=== PATIENT | male | born 1950 | race African-American/Black ===

== ENCOUNTER 2017-12-20 09:56 | Outpatient (CLI) | payer MEDICARE, OTHER ==
[2017-12-21 08:12] LABS: COLLAGEN EPINEPHRINE 135 SECONDS (74-162)
== END 2017-12-21 ==
LOC: M LAB 09:56
DX: H02.032 Senile entropion of right lower eyelid (principal)
CPT/HCPCS: 36415

== ENCOUNTER 2018-01-04 12:06 | Observation (INO) | payer MEDICARE, BC, OTHER ==
[2018-01-04] MEDS: BACITRACIN OINT 30GM TOP ×2 (09:00)
[2018-01-04 13:03] LABS: BASO % 0.3 % (0.0-1.0); EOS # 0.1 10^3/uL (0.0-0.50); EOS % 1.1 % (0.0-3.0); HEMOGLOBIN 12.6 g/dl (13.5-17.5); IMMATURE GRANULOCYTE % 0.7 % (0-3.0); LYMPH # 1.3 10^3/uL (1.5-4.5); LYMPH % 11.6 % (24.0-44.0); MEAN CORPUSCULAR VOLUME 94.2 fl (80.0-96.0); MONO # 0.9 10^3/uL (0.0-0.8); MONO % 8.4 % (0.0-5.0); NEUTROPHILS # 8.6 10^3/uL (1.8-7.7); NEUTROPHILS % 77.9 % (36.0-66.0); PLATELET COUNT, AUTOMATED 279 10^3/uL (150-450); RED BLOOD COUNT 3.82 10^6/uL (4.30-6.10); RED CELL DISTRIBUTION WIDTH 12.2 % (11.5-14.5)
[2018-01-04 13:20] LABS: BEDSIDE GLUCOSE 123 MG/DL (80-115)
[2018-01-04 13:20] LABS: INR 0.95; PROTHROMBIN TIME 12.8 SECONDS (12.1-14.4)
[2018-01-04 13:21] LABS: PARTIAL THROMBOPLASTIN TIME 26.6 SECONDS (25.4-37.6)
[2018-01-04 13:32] LABS: ANION GAP 5 MEQ/L (8-16); BLOOD UREA NITROGEN 12 MG/DL (7-18); CARBON DIOXIDE LEVEL 26 MEQ/L (21-32); CHLORIDE LEVEL 101 MEQ/L (98-107); CPK CREATINE PHOSPHOKINASE 61 U/L (39-308); CREATININE FOR GFR 0.91 MG/DL (0.70-1.30); ETHYL ALCOHOL (ETHANOL) 0.007 % (0.000-0.010); GLOMERULAR FILTRATION RATE > 60.0 (>49); GLUCOSE, FASTING 125 MG/DL (70-100); MAGNESIUM LEVEL 2.3 MG/DL (1.8-2.4); MB/CK RELATIVE INDEX 1.64 (< OR =4); SODIUM LEVEL 132 MEQ/L (136-145); THYROID STIMULATING HORMONE 0.962 uIU/ML (0.358-3.740); TROPONIN I < 0.02 NG/ML (< 0.10)
[2018-01-04] MEDS: NS 1,000 ML IV ×2 (13:55)
[2018-01-04 15:04] LABS: KETONE, URINE AUTO RFX TRACE mg/dL (NEGATIVE); LEUKOCYTE ESTERASE UR AUTO RFX NEGATIVE (NEGATIVE); MUCUS, URINE RFX SMALL (NEGATIVE); NITRITE, URINE AUTO RFX NEGATIVE (NEGATIVE); RBC, URINE AUTO RFX 0 /HPF (0-3); SPECIFIC GRAVITY UR AUTO RFX 1.008 (1.002-1.035); SQUAM EPITHELIAL CELL UR AURFX 0 /HPF (0-6); WBC, URINE AUTO RFX 0 /HPF (0-3)
[2018-01-04 15:22] LABS: AMPHETAMINES LEVEL URINE NEGATIVE (NEGATIVE); BARBITURATES URINE NEGATIVE (NEGATIVE); BENZODIAZEPINES URINE NEGATIVE (NEGATIVE); CANNABINOIDS URINE NEGATIVE (NEGATIVE); COCAINE METABOLITE URINE NEGATIVE (NEGATIVE); METHADONE URINE NEGATIVE (NEGATIVE); OPIATES URINE NEGATIVE (NEGATIVE); PHENCYCLIDINE URINE NEGATIVE (NEGATIVE)
[2018-01-04] MEDS ORDERED: ACETAMINOPHEN TAB 650MG DOSE (2X325MG) PO ×2 (16:00)
[2018-01-04] MEDS ORDERED: ONDANSETRON 4MG/2ML VIAL (J2405) IV ×2 (16:00)
[2018-01-04] MEDS ORDERED: BISACODYL 5 MG TAB PO ×2 (16:00)
[2018-01-04] MEDS: MULTIVITAMINS/MINERALS THERAP 1 TAB PO ×2 (18:18)
[2018-01-04] MEDS: FOLIC ACID 1 MG TAB PO ×2 (18:18)
[2018-01-04 19:39] LABS: CPK CREATINE PHOSPHOKINASE 55 U/L (39-308); MB/CK RELATIVE INDEX 1.82 (< OR =4); TROPONIN I < 0.02 NG/ML (< 0.10)
[2018-01-04] MEDS: ATORVASTATIN 20 MG TAB PO ×2 (20:22)
[2018-01-04] MEDS: HEPARIN SOD (PORCINE) 5000 UNITS/ML VIAL SC ×2 (22:45)
[2018-01-05 00:55] LABS: CK-MB VALUE MASS < 1.0 NG/ML (<3.6); CPK CREATINE PHOSPHOKINASE 54 U/L (39-308); MB/CK RELATIVE INDEX 1.85 (< OR =4); TROPONIN I < 0.02 NG/ML (< 0.10)
[2018-01-05] MEDS: HEPARIN SOD (PORCINE) 5000 UNITS/ML VIAL SC ×6 (06:44→21:05)
[2018-01-05 07:50] LABS: HEMATOCRIT 34.2 % (42.0-52.0); HEMOGLOBIN 11.9 g/dl (13.5-17.5); MEAN CORPUSCULAR HEMOGLOBIN 32.8 pg (27.0-33.0); MEAN CORPUSCULAR HGB CONC 34.8 g/dl (32.0-36.5); MEAN CORPUSCULAR VOLUME 94.2 fl (80.0-96.0); PLATELET COUNT, AUTOMATED 270 10^3/uL (150-450); RED BLOOD COUNT 3.63 10^6/uL (4.30-6.10); RED CELL DISTRIBUTION WIDTH 12.2 % (11.5-14.5); WHITE BLOOD COUNT 9.6 10^3/uL (4.0-10.0)
[2018-01-05 08:24] LABS: ANION GAP 7 MEQ/L (8-16); BLOOD UREA NITROGEN 9 MG/DL (7-18); CALCIUM LEVEL 8.3 MG/DL (8.8-10.2); CARBON DIOXIDE LEVEL 25 MEQ/L (21-32); CHLORIDE LEVEL 106 MEQ/L (98-107); CK-MB VALUE MASS < 1.0 NG/ML (<3.6); CPK CREATINE PHOSPHOKINASE 50 U/L (39-308); CREATININE FOR GFR 0.77 MG/DL (0.70-1.30); GLOMERULAR FILTRATION RATE > 60.0 (>49); GLUCOSE, FASTING 100 MG/DL (70-100); POTASSIUM SERUM 4.4 MEQ/L (3.5-5.1); SODIUM LEVEL 138 MEQ/L (136-145); TROPONIN I < 0.02 NG/ML (< 0.10)
[2018-01-05] MEDS: NS 1,000 ML IV ×4 (11:06→21:04)
[2018-01-05] MEDS: FOLIC ACID 1 MG TAB PO ×2 (11:07)
[2018-01-05] MEDS: MULTIVITAMINS/MINERALS THERAP 1 TAB PO ×2 (11:07)
[2018-01-05] MEDS: ASPIRIN 325 MG TAB PO ×2 (11:07)
[2018-01-05] MEDS: BACITRACIN OINT 30GM TOP ×2 (11:07)
[2018-01-05] MEDS: THIAMINE 100 MG TAB PO ×4 (11:08→21:05)
[2018-01-05] MEDS: ATORVASTATIN 20 MG TAB PO ×2 (21:05)
[2018-01-06] MEDS: HEPARIN SOD (PORCINE) 5000 UNITS/ML VIAL SC ×6 (06:06→21:06)
[2018-01-06] MEDS: FOLIC ACID 1 MG TAB PO ×2 (09:11)
[2018-01-06] MEDS: THIAMINE 100 MG TAB PO ×4 (09:11→20:25)
[2018-01-06] MEDS: MULTIVITAMINS/MINERALS THERAP 1 TAB PO ×2 (09:11)
[2018-01-06] MEDS: ASPIRIN 325 MG TAB PO ×2 (09:11)
[2018-01-06] MEDS: BACITRACIN OINT 30GM TOP ×2 (09:13)
[2018-01-06] MEDS ORDERED: SLF 3 ML SYR IV ×2 (10:15)
[2018-01-06] MEDS: SLF 3 ML SYR IV ×4 (13:13→21:06)
[2018-01-06] MEDS: ATORVASTATIN 20 MG TAB PO ×2 (20:25)
[2018-01-07] MEDS: HEPARIN SOD (PORCINE) 5000 UNITS/ML VIAL SC ×2 (05:07)
[2018-01-07] MEDS: SLF 3 ML SYR IV ×2 (05:08)
[2018-01-07] MEDS: MULTIVITAMINS/MINERALS THERAP 1 TAB PO ×2 (08:53)
[2018-01-07] MEDS: FOLIC ACID 1 MG TAB PO ×2 (08:53)
[2018-01-07] MEDS: ASPIRIN 325 MG TAB PO ×2 (08:53)
[2018-01-07] MEDS: THIAMINE 100 MG TAB PO ×2 (08:53)
[2018-01-07] MEDS: BACITRACIN OINT 30GM TOP ×2 (08:54)
== END 2018-01-07 13:07 | disposition home or self-care (01) ==
LOC: M ED 12:06 → M ED INP 15:56 → M PCU 18:10
DX: I10 Essential (primary) hypertension (principal); I73.9 Peripheral vascular disease, unspecified; I95.1 Orthostatic hypotension; E78.5 Hyperlipidemia, unspecified; R55 Syncope and collapse; Z79.82 Long term (current) use of aspirin; Z79.899 Other long term (current) drug therapy; F10.10 Alcohol abuse, uncomplicated
CPT/HCPCS: 71045

== ENCOUNTER → 2019-10-22 | Outpatient (CLI) | payer MEDICARE, BC, OTHER ==
[~2019-10-22] MED LIST: ADVI200T PO; AMLO1TAB24 PO; AMLO1TAB25 PO; APAP325T4 PO; ASPI325T57 PO; ATOR40TA75 PO; CARV12.5 PO; D31000TA2 PO; FOLI1TAB11 PO; IBUP200C28 PO; LISI-538 PO; LISI30TA4 PO; OXYC1TAB23 PO; THIA100TA PO; VITMTA PO; XARE2.5T PO
[2019-11-18 18:11] LABS: INR 0.91; PROTHROMBIN TIME 12.5 SECONDS (11.8-14.0)
[2019-11-18 20:28] LABS: HEMATOCRIT 42.9 % (42.0-52.0); HEMOGLOBIN 14.7 g/dl (13.5-17.5); MEAN CORPUSCULAR HEMOGLOBIN 32.8 pg (27.0-33.0); MEAN CORPUSCULAR HGB CONC 34.3 g/dl (32.0-36.5); MEAN CORPUSCULAR VOLUME 95.8 fl (80.0-96.0); PLATELET COUNT, AUTOMATED 340 10^3/uL (150-450); RED BLOOD COUNT 4.48 10^6/uL (4.30-6.10); WHITE BLOOD COUNT 9.2 10^3/uL (4.0-10.0)
--- NOTE | 2019-12-11 13:33 | ECGEPIP ---
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
[2019-12-21 11:23] LABS: ALBUMIN 4.5 GM/DL (3.2-5.2); ALT/SGPT 35 U/L (12-78); BILIRUBIN,TOTAL 0.6 MG/DL (0.2-1.0); BLOOD UREA NITROGEN 9 MG/DL (7-18); CALCIUM LEVEL 9.3 MG/DL (8.8-10.2); CARBON DIOXIDE LEVEL 25 MEQ/L (21-32); CHLORIDE LEVEL 100 MEQ/L (98-107); CREATININE FOR GFR 0.92 MG/DL (0.70-1.30); GLOMERULAR FILTRATION RATE > 60.0 (>49); GLUCOSE, FASTING 104 MG/DL (70-100); POTASSIUM SERUM 4.5 MEQ/L (3.5-5.1); SODIUM LEVEL 132 MEQ/L (136-145); TOTAL PROTEIN 7.7 GM/DL (6.4-8.2)
== END ==
LOC: M LAB 09:28
PROVIDERS: ATTEND Orthopaedic Surgery
DX: Z01.818 Encounter for other preprocedural examination (principal); M16.11 Unilateral primary osteoarthritis, right hip

== ENCOUNTER → 2019-10-31 | Outpatient (REF) | payer MEDICARE, BC, OTHER | LOC: M PLALAB 09:37 | PROVIDERS: ATTEND Physician Assistant Medical | DX: M16.11 Unilateral primary osteoarthritis, right hip (principal) ==

== ENCOUNTER 2019-11-04 07:10 | Inpatient (IN) | payer MEDICARE, BC, OTHER ==
[~2019-11-04 07:10] MED LIST changes: -AMLO1TAB24 PO; -D31000TA2 PO; -IBUP200C28 PO; -LISI30TA4 PO; -OXYC1TAB23 PO; -XARE2.5T PO; +ceFAZolin 2 GM/D5W 50 ML IV BAG (J0690 PER 500MG) As Ordered ONE
[2019-11-04] MEDS ORDERED: TRANEXAMIC ACID 100 MG/ML 10ML VIAL As Ordered ONE (07:17)
[2019-11-04] MEDS ORDERED: BUPIVACAINE LIPOSOME/PF 1.3% 20ML VIAL (13.3MG/ML)(EXPAREL)(C9290 PER1MG) As Ordered ONE (07:17)
[2019-11-04] MEDS ORDERED: EPINEPHrine INJ 1 MG/ML 1ML AMP As Ordered ONE (07:19)
[2019-11-04] MEDS ORDERED: ceFAZolin 1GM VIAL (J0690 PER 500MG) As Ordered ONE (07:19)
[2019-11-04] MEDS ORDERED: MIDAZOLAM INJ 2MG/2ML VIAL (J2250 PER 1MG) As Ordered ONE (08:02)
[2019-11-04] MEDS ORDERED: fentaNYL 100 MCG/2 ML INJECTION (J3010) As Ordered ONE (08:02)
[2019-11-04] MEDS ORDERED: propofoL 200 MG/20 ML VIAL As Ordered ONE ×2 (08:02→08:27)
[2019-11-04] MEDS ORDERED: LIDOCAINE 2% 100MG/5ML SDV (FOR ANES.) As Ordered ONE (08:02)
[2019-11-04] MEDS ORDERED: ONDANSETRON 4MG/2ML VIAL As Ordered ONE (08:02)
[2019-11-04] MEDS ORDERED: PHENYLephrine HCL 500 MCG/5 ML (100MCG/ML) SYRINGE (J2370) As Ordered ONE ×2 (08:08→08:50)
[2019-11-04] MEDS ORDERED: ePHEDrine SULFATE 25 MG/5 ML(5MG/ML) SYRINGE As Ordered ONE (08:33)
[2019-11-04] MEDS ORDERED: PERCOCET 5MG/325MG TAB As Ordered ONE ×2 (13:46→19:52)
[2019-11-04] MEDS ORDERED: ceFAZolin 2 GM/D5W 50 ML IV BAG (J0690 PER 500MG) As Ordered ONE (16:49)
[2019-11-05] MEDS ORDERED: ceFAZolin 2 GM/D5W 50 ML IV BAG (J0690 PER 500MG) As Ordered ONE (00:05)
[2019-11-05] MEDS ORDERED: PERCOCET 5MG/325MG TAB As Ordered ONE ×4 (00:13→15:41)
[2019-11-05] MEDS ORDERED: ATORVASTATIN 20 MG TAB As Ordered ONE (08:30)
[2019-11-05] MEDS ORDERED: amLODIPine 5 MG TAB As Ordered ONE (08:30)
[2019-11-05] MEDS ORDERED: MORPHINE 4 MG/ML 1ML VIAL/SYRINGE (J2270) IV PRN (16:30)
[2019-11-05] MEDS ORDERED: LR 1,000 ML IV SCH (16:30)
[2019-11-05] MEDS ORDERED: MORPHINE 2 MG/ML 1ML VIAL (J2270) IV PRN (16:30)
[2019-11-05] MEDS ORDERED: ACETAMINOPHEN TAB 650MG DOSE (2X325MG) PO PRN (16:30)
[2019-11-05] MEDS ORDERED: ONDANSETRON 4MG/2ML VIAL IV PRN (16:30)
[2019-11-05] MEDS ORDERED: LISI30TA4 PO (18:44)
[2019-11-05] MEDS ORDERED: AMLO1TAB24 PO (18:44)
[2019-11-05] MEDS ORDERED: VITMTA PO (18:44)
[2019-11-05] MEDS ORDERED: D31000TA2 PO (18:44)
[2019-11-05] MEDS ORDERED: IBUP200C28 PO (18:44)
[2019-11-05 21:25] LABS: HEMATOCRIT 34.4 % (42.0-52.0); HEMOGLOBIN 11.9 g/dl (13.5-17.5); MEAN CORPUSCULAR HEMOGLOBIN 32.9 pg (27.0-33.0); MEAN CORPUSCULAR HGB CONC 34.6 g/dl (32.0-36.5); PLATELET COUNT, AUTOMATED 295 10^3/uL (150-450); RED BLOOD COUNT 3.62 10^6/uL (4.30-6.10); WHITE BLOOD COUNT 9.1 10^3/uL (4.0-10.0)
[2019-11-06] MEDS ORDERED: MIRALAX *UNIT DOSE* 17GM PACKET PO SCH (09:00)
[2019-11-06] MEDS ORDERED: ATORVASTATIN 20 MG TAB PO SCH (09:00)
[2019-11-06] MEDS ORDERED: MOM 30ML SUSPENSION UDC PO SCH (09:00)
[2019-11-06] MEDS ORDERED: amLODIPine 5 MG TAB PO SCH (09:00)
[2019-11-06] MEDS ORDERED: RIVAROXABAN 10 MG TAB (XARELTO) PO SCH (18:00)
--- NOTE | 2019-12-11 09:46 | RO ---
DATE OF OPERATION: 11/04/2019 PREOPERATIVE DIAGNOSIS: Right hip osteoarthritis. POSTOPERATIVE DIAGNOSIS: Right hip osteoarthritis. PROCEDURE: Right total hip arthroplasty using a [place] size 8 high offset, plus 8.5 40 head, 58 acetabular component. SURGEON: Newton Tamayo MD SOLDER MAKING SUPERVISOR: JOSE EDUARDO Lucas ANESTHESIA: Spinal. ESTIMATED BLOOD LOSS: 200 ml COMPLICATIONS: None. INDICATIONS: Gentleman in his late 60s who has had persistent right hip pain. He wishes to undergo hip replacement. Understood the nature and risks. PROCEDURE: The patient was taken to the operating room and placed in the supine position after spinal anesthesia was induced. The patient was then turned to the left lateral decubitus position on the [place] positioner. The right hip was prepped and draped in the usual sterile fashion. Time-out was performed and a longitudinal incision was over the lateral aspect of the hip. Sharp dissection was carried down through subcutaneous tissue. I incised the fascia and then divided the anterior 40% of the abductor off anteriorly exposing the femoral neck and labrum. We dislocated the hip without difficulty. The reamers were then used to start the canal finding reamer, lateralizing reamer and sequentially reamed up to a size 8, which had good purchase and good bleeding bone. The neck cut was made at about of a fingerbreadth up in the lesser trochanter. We directed our attention to the acetabulum. Anterior/posterior retractors were placed and soft tissue was removed from around the acetabulum, including some calcified labrum. The reaming was then begun. I started with a 48 reamed up to 57, which had good concentric reaming. I was able to medialize it some and then impacted in a 58 cup and the appropriate amount of anteversion and horitzontal tilt. Excellent position was noted. I did place a trial cup in for a liner. I had irrigated multiple times. I then sequentially broached the canal up to a size 8, which had a good fit and fill. I trial off the trial broach and chose the 8.5 high offset, which seemed to have the best stability and best soft tissue tension, minimal shock and full extension and excellent stability and external rotation and extension, flexion, internal rotation. I removed the trial, acetabular component, put the apex hole eliminator and I then I packed it in the actual polyethylene. The poly seems well seated. I then impacted in the actual size 8 high offset stem, made sure this was well seated. I irrigated it. I then place the 8.5, 40 head, impacted this in place, made sure it was well seated. We reduced the hip. After hip range of motion, was very pleased with the stability and range of motion. The TXA and Exparel were placed in the deep tissues. Irrigation was performed and the deep layer was closed with interrupted #1 Vicryl suture. Several stitches being placed through the bone for the abductor and then the fascia annika was then closed with #1 Vicryl suture, running Stratafix and 2-0 Vicryl and skin garcía. Sterile dressing was applied. He was taken to the recovery in stable condition. There were no known complications. The plan will be routine postop. The exceptional children teacher assistant was instrumental in holding retractors and assisting in mixing the bone cement and assisting in wound closure. CAROL
--- NOTE | 2019-12-28 07:23 | IPN ---
DATE: 11/04/2019 Patient was seen and examined in the preop area. He wished to go ahead with a right total hip arthroplasty. He understands the nature of this, the risks of bleeding, infection, damage to nerves and/or vessels, persistent pain, wear, loosening, dislocation, blood clots, medical problems and , among others. CAROL
--- NOTE | 2020-01-28 07:15 | DS ---
DATE OF ADMISSION: 11/04/2019 DATE OF DISCHARGE: 11/05/2019 ATTENDING PHYSICIAN: Newton Tamayo MD. ADMITTING DIAGNOSIS: Right hip osteoarthritis. OTHER DIAGNOSES: * Hypertension. * Hyperlipidemia. * Peripheral vascular disease. DISCHARGE DIAGNOSIS: Right hip osteoarthritis status post right total hip arthroplasty. HISTORY: Patient is a 69-year-old male that had progressively worsening right hip pain and stiffness. He failed to improve with conservative measures. He continued to have symptoms with weightbearing activities and activities of daily living. He consented for an elective right total hip arthroplasty with Dr. Tamayo for his continued symptoms. OPERATION PERFORMED: Right total hip arthroplasty. HOSPITAL COURSE: The patient underwent a right total hip arthroplasty under spinal anesthesia which was uneventful. His hospital course was without complication and he was up with physical therapy per their protocol weightbearing as tolerated on the right lower extremity. Patient was discharged on oral pain medications and will resume his pre-operative medications and diet. Patient will use his thromboembolic deterrent stockings and take his anticoagulant post-operatively to prevent deep venous thrombosis. Patient will follow up in our office in 12-14 days for a wound check and staple removal. He is encouraged to contact our office sooner if there is any increase in pain, redness, drainage, numbness or tingling in the extremity, fever greater than 101 degrees or any other concerns. Please see medical records for additional details. CAROL
== END 2019-11-05 16:00 | disposition home or self-care (01) | DRG 470 ==
LOC: M MS5PR 07:10
PROVIDERS: ADMIT Orthopaedic Surgery; ATTEND Orthopaedic Surgery
PROC: 0SR90JZ Replacement of Right Hip Joint with Synthetic Substitute, Open Approach (ICD-10-PCS; principal; 2019-11-04)
DX: M16.11 Unilateral primary osteoarthritis, right hip (principal); I10 Essential (primary) hypertension; E78.5 Hyperlipidemia, unspecified; I73.9 Peripheral vascular disease, unspecified

== ENCOUNTER → 2019-12-19 | Outpatient (CLI) | payer MEDICARE, BC, OTHER ==
[~2019-12-19] MED LIST changes: +AMLO1TAB24 PO; +D31000TA2 PO; +IBUP200C28 PO; +LISI30TA4 PO; +OXYC1TAB23 PO; +XARE2.5T PO; -ceFAZolin 2 GM/D5W 50 ML IV BAG (J0690 PER 500MG) As Ordered ONE
--- NOTE | 2019-12-26 09:04 | REP ---
CHEST X-RAY: 2-VIEWS HISTORY: Abnormal weight loss. COMPARISON: Chest x-ray 12/22/2019. FINDINGS: There is a stable linear band of fibrosis in the right apex overlying the right first rib and medial clavicle unchanged from 10/22/2019 and 01/04/2018. Lung barrett are otherwise well-inflated and clear. Pleural angles are sharp. The heart is not enlarged. The aorta is calcific. Mild degenerative changes are seen in the thoracic spine. Pulmonary vasculature is not increased. IMPRESSION: No acute disease. MTDD
== END ==
LOC: M ADAMS 14:03
PROVIDERS: ATTEND Internal Medicine
DX: R63.4 Abnormal weight loss (principal); Z87.891 Personal history of nicotine dependence

== ENCOUNTER → 2019-12-27 | Outpatient (CLI) | payer MEDICARE, BC, OTHER ==
[2019-12-27 10:49] LABS: BASO % 0.3 % (0.0-1.0); EOS # 0.1 10^3/uL (0.0-0.5); EOS % 0.5 % (0.0-3.0); HEMATOCRIT 40.4 % (42.0-52.0); HEMOGLOBIN 13.6 g/dl (13.5-17.5); LYMPH # 1.2 10^3/uL (1.5-5.0); MEAN CORPUSCULAR HEMOGLOBIN 31.8 pg (27.0-33.0); MEAN CORPUSCULAR HGB CONC 33.7 g/dl (32.0-36.5); MEAN CORPUSCULAR VOLUME 94.4 fl (80.0-96.0); MONO % 10.1 % (0.0-5.0); NEUTROPHILS # 7.4 10^3/uL (1.5-8.5); NEUTROPHILS % 76.6 % (36.0-66.0); PLATELET COUNT, AUTOMATED 450 10^3/uL (150-450); RED BLOOD COUNT 4.28 10^6/uL (4.30-6.10); WHITE BLOOD COUNT 9.7 10^3/uL (4.0-10.0)
[2019-12-27 11:04] LABS: INR 0.96; PROTHROMBIN TIME 12.9 SECONDS (12.5-14.3)
[2019-12-27 11:05] LABS: PARTIAL THROMBOPLASTIN TIME 29.4 SECONDS (24.2-38.5)
[2019-12-27 11:14] LABS: BLOOD UREA NITROGEN 6 MG/DL (7-18); CALCIUM LEVEL 9.6 MG/DL (8.8-10.2); CARBON DIOXIDE LEVEL 27 MEQ/L (21-32); CHLORIDE LEVEL 94 MEQ/L (98-107); CREATININE FOR GFR 0.75 MG/DL (0.70-1.30); GLOMERULAR FILTRATION RATE > 60.0 (>49); GLUCOSE, FASTING 104 MG/DL (70-100); POTASSIUM SERUM 4.4 MEQ/L (3.5-5.1); SODIUM LEVEL 127 MEQ/L (136-145)
== END ==
LOC: M LAB 09:53
PROVIDERS: ATTEND Surgery Vascular Surgery
DX: I70.211 Atherosclerosis of native arteries of extremities with intermittent claudication, right leg (principal)

== ENCOUNTER 2020-01-04 14:45 | Emergency (ER) | payer MEDICARE, BC, OTHER ==
[~2020-01-04] VITALS: Ht 182.9 cm; Wt 75.7 kg
[~2020-01-04 14:45] MED LIST changes: -OXYC1TAB23 PO; -XARE2.5T PO
[2020-01-04] MEDS ORDERED: NS 1,000 ML IV ONE (15:45)
--- NOTE | 2020-01-04 16:02 | REPVR ---
PROCEDURE INFORMATION: Exam: XR Chest, 2 Views Exam date and time: 01/04/2020 3:37 PM Age: 69 years old Clinical indication: Other: Syncope TECHNIQUE: Imaging protocol: XR of the chest Views: 2 views. COMPARISON: DX CHEST 2 VIEW 12/19/2019 1:47 PM FINDINGS: Lungs: Chronic linear scarring in the right lung apex. No acute focal areas of consolidation within the lungs. Pleural space: No pleural effusion or pneumothorax. Heart/Mediastinum: Cardiac and mediastinal silhouettes are unremarkable. Bones/joints: No acute osseus lesion or fracture. IMPRESSION: No acute cardiopulmonary findings. Electronically signed by: Sang Young On 01/04/2020 16:02:20 PM
[2020-01-04] MEDS ORDERED: OXYC1TAB23 PO (16:55)
[2020-01-04] MEDS ORDERED: XARE2.5T PO (16:55)
[2020-01-04 16:59] LABS: BASO % 0.2 % (0.0-1.0); EOS # 0.1 10^3/uL (0.0-0.5); EOS % 1.1 % (0.0-3.0); HEMATOCRIT 32.4 % (42.0-52.0); HEMOGLOBIN 10.6 g/dl (13.5-17.5); LYMPH # 0.8 10^3/uL (1.5-5.0); LYMPH % 6.3 % (24.0-44.0); MEAN CORPUSCULAR HEMOGLOBIN 31.8 pg (27.0-33.0); MEAN CORPUSCULAR HGB CONC 32.7 g/dl (32.0-36.5); MEAN CORPUSCULAR VOLUME 97.3 fl (80.0-96.0); MONO # 1.4 10^3/uL (0.0-0.8); MONO % 11.2 % (0.0-5.0); NEUTROPHILS # 9.9 10^3/uL (1.5-8.5); NEUTROPHILS % 80.6 % (36.0-66.0); PLATELET COUNT, AUTOMATED 258 10^3/uL (150-450); RED BLOOD COUNT 3.33 10^6/uL (4.30-6.10); WHITE BLOOD COUNT 12.3 10^3/uL (4.0-10.0)
[2020-01-04 17:34] LABS: ALBUMIN 3.2 GM/DL (3.2-5.2); ALT/SGPT 17 U/L (12-78); BILIRUBIN,DIRECT 0.1 MG/DL (0.0-0.2); BILIRUBIN,TOTAL 0.4 MG/DL (0.2-1.0); BLOOD UREA NITROGEN 19 MG/DL (7-18); CALCIUM LEVEL 8.5 MG/DL (8.8-10.2); CARBON DIOXIDE LEVEL 27 MEQ/L (21-32); CHLORIDE LEVEL 101 MEQ/L (98-107); CK-MB VALUE MASS 1.4 NG/ML (<3.6); CPK CREATINE PHOSPHOKINASE 287 U/L (39-308); CREATININE FOR GFR 0.96 MG/DL (0.70-1.30); FREE T4 1.32 NG/DL (0.76-1.46); GLOMERULAR FILTRATION RATE > 60.0 (>49); GLUCOSE, FASTING 96 MG/DL (70-100); MB/CK RELATIVE INDEX 0.49 (< OR =4); POTASSIUM SERUM 4.1 MEQ/L (3.5-5.1); SODIUM LEVEL 134 MEQ/L (136-145); TOTAL PROTEIN 5.9 GM/DL (6.4-8.2); TROPONIN I 0.06 NG/ML (< 0.10)
--- NOTE | 2020-01-04 18:25 | REPVR ---
PROCEDURE INFORMATION: Exam: CT Head Without Contrast Exam date and time: 01/04/2020 6:05 PM Age: 69 years old Clinical indication: Syncope and collapse TECHNIQUE: Imaging protocol: Computed tomography of the head without contrast. Radiation optimization: All CT scans at this facility use at least one of these dose optimization techniques: automated exposure control; mA and/or kV adjustment per patient size (includes targeted exams where dose is matched to clinical indication); or iterative reconstruction. COMPARISON: CT Head without contrast 01/04/2018 12:21 PM FINDINGS: Brain: Minimal nonspecific hypodensities of the periventricular and deep subcortical white matter, most likely secondary to chronic small vessel ischemic change. No intracranial hemorrhage or extra-axial fluid collection. No evidence of mass effect or midline shift. Madsen-white matter differentiation is normal. Cerebral ventricles: No ventriculomegaly. Bones/joints: No acute osseus lesion or fracture. Paranasal sinuses: Visualized sinuses are unremarkable. No fluid levels. Mastoid air cells: Unremarkable. Soft tissues: Unremarkable. IMPRESSION: No acute intracranial pathology. Electronically signed by: Sang Young On 01/04/2020 18:24:59 PM
[2020-01-04] MEDS ORDERED: PERCOCET 5MG/325MG TAB PO ONE (18:30)
[2020-01-04 21:47] VITALS: BP 126/73
--- NOTE | 2020-01-05 20:43 | ECGEPIP ---
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
== END 2020-01-04 21:57 | disposition short-term general hospital (02) ==
LOC: M ED 14:45 → EDBD 14:45 → M ED 21:57
DX: G45.9 Transient cerebral ischemic attack, unspecified (principal); R55 Syncope and collapse; R94.31 Abnormal electrocardiogram [ECG] [EKG]; I10 Essential (primary) hypertension; E78.5 Hyperlipidemia, unspecified; Z87.891 Personal history of nicotine dependence; Z79.899 Other long term (current) drug therapy

== ENCOUNTER → 2020-01-16 | Outpatient (REF) | payer MEDICARE, BC, OTHER ==
[~2020-01-16] MED LIST changes: +OXYC1TAB23 PO; +XARE2.5T PO
== END ==
LOC: M LAB REF 16:15
PROVIDERS: ATTEND Internal Medicine
DX: E87.1 Hypo-osmolality and hyponatremia (principal)

== ENCOUNTER → 2020-01-28 | Outpatient (CLI) | payer MEDICARE, BC, OTHER ==
--- NOTE | 2020-01-29 10:55 | REP ---
INDICATION: STAGING LUNG R91.8. COMPARISON: Comparison chest CT study [facility] dated January 01, 2020.. TECHNIQUE: Fifty-four minutes following the intravenous injection of a 8.04 mCi dose of F-18 FDG, three-dimensional PET scintigraphy is acquired from the skull base to the proximal thighs. Triplanar noncontrast CT scanning is acquired through the same anatomic range for attenuation correction, and image registration with scan parameters optimized to minimize radiation exposure to the patient. PET scintigraphy and CT datasets were fused and displayed on a workstation with multiplanar and projection display capability. FINDINGS: Head and neck soft tissues are unremarkable. There is a bandlike pleuroparenchymal fibrotic density in the right lung apex which is not hypermetabolic. Maximum standard uptake value 1.06. Medial and inferior to this there is another bandlike density with maximum standard uptake value also below hypermetabolic, 1.22. In the posterior aspect of the left lower lobe, there is a hypermetabolic pulmonary nodule. Maximum standard uptake value is 9.94. this pulmonary nodule has a suspicious spiculated morphology and measures 1.9 cm in greatest diameter. There is no other abnormal hypermetabolic uptake in the chest. In the abdomen and pelvis, there is normal distribution of FDG. No abnormal hypermetabolic uptake is seen in the adrenals or liver. Extensive vascular calcification in the is seen and there is a right-sided axillofemoral shunt graft a right hip arthroplasty is noted. No other abnormal hypermetabolic uptake is seen. There is mildly increased uptake at a healing rib fracture along the left lower anterior costal margin. This is the anterior edge of the left 6th rib. IMPRESSION: The left lower lobe spiculated 2 cm nodule is hypermetabolic suspicious for primary lung malignancy. No other abnormal hypermetabolic uptake is seen the in the chest. 2 somewhat nodular opacities are noted in the right lung apex and upper lobe but these are not hypermetabolic. <Electronically signed by Joey Hatch > 01/29/20 [id number]
== END ==
LOC: M PLARAD 11:19
PROVIDERS: ATTEND Internal Medicine
DX: R91.8 Other nonspecific abnormal finding of lung field (principal)
CPT/HCPCS: 78815; A9552

== ENCOUNTER → 2020-02-20 | Outpatient (REF) | payer MEDICARE, OTHER ==
[~2020-02-20] MED LIST changes: +ASPI-255 PO
[2020-02-20 11:41] LABS: PLATELET COUNT, AUTOMATED 407 10^3/uL (150-450)
[2020-02-20 15:51] LABS: INR 0.92; PROTHROMBIN TIME 12.5 SECONDS (12.5-14.3)
[2020-02-20 15:52] LABS: PARTIAL THROMBOPLASTIN TIME 30.5 SECONDS (24.2-38.5)
== END ==
LOC: M LABDRWAD 10:23
PROVIDERS: ATTEND Internal Medicine Pulmonary Disease
DX: R91.1 Solitary pulmonary nodule (principal); Z79.01 Long term (current) use of anticoagulants

== ENCOUNTER → 2020-02-21 | Outpatient (CLI) | payer MEDICARE, BC, OTHER ==
[~2020-02-21] MED LIST changes: +LIDOCAINE 1% MDV 20ML VIAL As Ordered ONE; +SODIUM BICARBONATE 8.4% INJ 50MEQ 50 ML VIAL As Ordered ONE
--- NOTE | 2020-02-21 10:32 | REP ---
INDICATION: POST LEFT LUNG BIOPSY, 1 VIEW, PA INSPIRATION. Patient is status post CT guided needle biopsy left lung. COMPARISON: Comparison chest x-ray January 04, 2020 and October 22, 2019.. TECHNIQUE: Upright inspire a pedro PA radiograph. FINDINGS: There is a very small crescent of apical pleural air on the left indicating a small postprocedural pneumothorax. A nodular opacity is seen projecting in the inferior perihilar region on the left. There is no evidence of parenchymal hemorrhage. Oxygen delivery tubing is noted. There are surgical clips in the right axillary soft tissues. There is an area of linear fibrosis in the right apex. Lung barrett are otherwise clear. IMPRESSION: Tiny left apical pneumothorax. 2 hour follow-up chest x-ray recommended. <Electronically signed by Joey Hatch > 02/21/20 1020
[2020-02-21 12:32] VITALS: BP 120/63
--- NOTE | 2020-02-21 12:42 | REP ---
INDICATION: POST LEFT LUNG BIOPSY, 1 VIEW. COMPARISON: Comparison study is from 10:17 a.m. on this same date, 02/21/2020.. TECHNIQUE: Inspiration PA chest radiograph. FINDINGS: The 2 hour follow-up chest radiograph demonstrates a tiny amount of left apical pleural air essentially unchanged from the earlier film. Patient remains asymptomatic and will be released. Perihilar nodular opacity seen in the left inferior perihilar region. Pleuroparenchymal changes on the right. IMPRESSION: Stable, tiny left apical pneumothorax. Unchanged from the earlier radiograph. <Electronically signed by Joey Hatch > 02/21/20 1639
--- NOTE | 2020-02-21 13:38 | REP ---
INDICATION: SOLITARY PULMONARY NODULE. COMPARISON: None. TECHNIQUE: The procedure is performed by Alyson Morocho [facility], under the direct supervision of Dr. Hatch. The risks and benefits of the procedure were explained to the patient and informed consent was obtained both orally and written. Directly prior to the start of the procedure, a formal timeout was done in the exam room. The left upper lobe lung nodule was localized using CT guidance. Skin was prepped and draped in the usual sterile fashion. Three ml of buffered lidocaine was used as a local anesthetic. FINDINGS: Using CT guidance a 19/20 gauge coaxial needle biopsy system was inserted and advanced into the nodule. Six core biopsy samples were obtained and sent to the lab. CT images obtained directly after the biopsy showed a small pneumothorax. The patient was placed on 2 L of oxygen and followed with serial chest x-rays. After the appropriate amount of monitored convalescence there is still evidence of a small pneumothorax. Considering the patient was in no distress he was discharged from the department, with the instructions that if anything changes to go directly to the ER. IMPRESSION: CT-guided left upper lobe lung nodule biopsy. <Electronically signed by Alyson Morocho > 02/21/20 1252 <Electronically signed by Joey Hatch > 02/21/20 [id number]
== END ==
LOC: M IRPRO 08:08
PROVIDERS: ATTEND Internal Medicine Pulmonary Disease
DX: C34.32 Malignant neoplasm of lower lobe, left bronchus or lung (principal)

== ENCOUNTER → 2020-03-24 | Outpatient (CLI) | payer MEDICARE, BC, OTHER ==
[~2020-03-24] MED LIST changes: -LIDOCAINE 1% MDV 20ML VIAL As Ordered ONE; -SODIUM BICARBONATE 8.4% INJ 50MEQ 50 ML VIAL As Ordered ONE
--- NOTE | 2020-03-24 08:11 | REP ---
INDICATION: OCCLUSION STENOSIS OF MOY CAROTID COMPARISON: None. TECHNIQUE: Madsen scale and color Doppler evaluation using linear high frequency transducer Findings: FINDINGS: Two-dimensional madsen scale and color images intimal thickening to the common carotid arteries extending to the carotid bulbs where a moderate amount of mixed partially calcified atheromatous plaquing is identified (right greater than left). Color Doppler interrogation demonstrates arterial wave patterns with moderate significant spectral broadening. Normal flow direction is appreciated in the bilateral vertebral arteries. ICA peak systolic velocity: Right 84.2 cm/s; Left 70.3 cm/s ICA diastolic velocity: Right 28.2 cm/s; Left 26.8 cm/s ECA peak systolic velocity: Right 196.6 cm/s; Left 91.7 cm/s CCA peak systolic velocity: Right 93.3 cm/s; Left 101.9 cm/s ICA/CCA ratio: Right 0.9 cm/s; Left 0.7 cm/s IMPRESSION: Moderately calcified atheromatous plaquing at the bilateral carotid bulbs with narrowing by set standards and visual evaluation in the less than 50% range bilaterally. <Electronically signed by Oziel Williamson > 03/24/20 0848
== END ==
LOC: M RAD 06:48
PROVIDERS: ATTEND Thoracic Surgery (Cardiothoracic Vascular Surgery)
DX: I65.23 Occlusion and stenosis of bilateral carotid arteries (principal)

== ENCOUNTER → 2020-04-06 | Outpatient (CLI) | payer MEDICARE, BC, OTHER ==
[~2020-04-06] MED LIST changes: -LISI-538 PO; +LISI20TA33 PO; +PERCOCET PO
[2020-04-06 10:23] LABS: HEMATOCRIT 42.7 % (42.0-52.0); HEMOGLOBIN 14.1 g/dl (13.5-17.5); MEAN CORPUSCULAR HEMOGLOBIN 31.5 pg (27.0-33.0); MEAN CORPUSCULAR VOLUME 95.3 fl (80.0-96.0); PLATELET COUNT, AUTOMATED 329 10^3/uL (150-450); RED BLOOD COUNT 4.48 10^6/uL (4.30-6.10); WHITE BLOOD COUNT 9.1 10^3/uL (4.0-10.0)
[2020-04-06 10:24] LABS: APPEARANCE, URINE CLEAR (CLEAR); BACTERIA, URINE AUTO NEGATIVE (NEGATIVE); BILIRUBIN, URINE AUTO NEGATIVE (NEGATIVE); BLOOD, URINE BLOOD NEGATIVE (NEGATIVE); COLOR, URINE YELLOW (YELLOW); GLUCOSE, URINE (UA) AUTO NEGATIVE (NEGATIVE); KETONE, URINE AUTO TRACE mg/dL (NEGATIVE); LEUKOCYTE ESTERASE, URINE AUTO NEGATIVE (NEGATIVE); MUCUS, URINE SMALL (NEGATIVE); NITRITE, URINE AUTO NEGATIVE (NEGATIVE); PROTEIN, URINE AUTO NEGATIVE (NEGATIVE); RBC, URINE AUTO 1 /HPF (0-3); SPECIFIC GRAVITY URINE AUTO 1.015 (1.002-1.035); SQUAMOUS EPITHELIAL CELL UR AU 0 /HPF (0-6); WBC, URINE AUTO 1 /HPF (0-3)
[2020-04-06 10:25] LABS: ABG BASE EXCESS -2.5 (-2.0-2.0); ABG HCO3 20.3 MEQ/L (22.0-26.0); ABG O2 SATURATION 97.9 % (95.0-99.0); ABG PARTIAL PRESSURE CO2 29.9 mmHg (35.0-45.0); ABG PARTIAL PRESSURE O2 92.4 mmHg (75.0-100.0); ABG STANDARD HCO3 22.4 MEQ/L (22.0-26.0); ABG TOTAL CO2 21.2 MEQ/L (23.0-31.0); ABG pH (ARTERIAL) 7.449 UNITS (7.350-7.450)
[2020-04-06 10:37] LABS: INR 1.15; PROTHROMBIN TIME 14.9 SECONDS (12.5-14.3)
[2020-04-06 10:47] LABS: BLOOD UREA NITROGEN 12 MG/DL (7-18); CARBON DIOXIDE LEVEL 25 MEQ/L (21-32); CHLORIDE LEVEL 100 MEQ/L (98-107); CREATININE FOR GFR 0.94 MG/DL (0.70-1.30); GLOMERULAR FILTRATION RATE > 60.0 (>49); GLUCOSE, FASTING 106 MG/DL (70-100); POTASSIUM SERUM 4.1 MEQ/L (3.5-5.1); SODIUM LEVEL 132 MEQ/L (136-145)
--- NOTE | 2020-04-06 11:25 | REP ---
INDICATION: LUNG CA PREOP ROOM 23. COMPARISON: Comparison chest x-ray February 21, 2020. TECHNIQUE: Two views.. FINDINGS: The lungs are well inflated and free of infiltrate. Pleural angles are sharp. Heart size is normal. Pulmonary vasculature is not increased. There is some left coronary artery vascular calcification or stent material visible. Wedging is noted in 1 of the midthoracic vertebrae on the lateral radiograph. This appears to be a new finding when compared with the CT0 images from January 01, 2020. IMPRESSION: No acute cardiopulmonary disease seen. Interval mild wedge compression deformity in the thoracic spine as a new finding.. <Electronically signed by Joey Hatch > 04/06/20 1125
--- NOTE | 2020-04-06 11:48 | ECGEPIP ---
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
== END ==
LOC: M ADMPAT 09:36
PROVIDERS: ATTEND Thoracic Surgery (Cardiothoracic Vascular Surgery)
DX: Z01.812 Encounter for preprocedural laboratory examination (principal); Z20.828 Contact with and (suspected) exposure to other viral communicable diseases; C34.90 Malignant neoplasm of unspecified part of unspecified bronchus or lung; Z79.01 Long term (current) use of anticoagulants

== ENCOUNTER → 2020-04-08 | Outpatient (CLI) | payer MEDICARE, BC, OTHER | LOC: M LABSMTC 12:35 | PROVIDERS: ATTEND Anesthesiology | DX: Z20.822 Contact with and (suspected) exposure to COVID-19 (principal) ==

== ENCOUNTER 2020-04-13 08:06 | Inpatient (IN) | payer MEDICARE, BC, OTHER ==
[2020-04-06 10:30] VITALS: BP 139/81
[~2020-04-13] VITALS: Ht 182.9 cm; Wt 69.4 kg
[2020-04-13] VITALS (13 sets, daily range): BP systolic 103–123; BP diastolic 52–67
[~2020-04-13 08:06] MED LIST changes: +LIDOCAINE 1% MDV 20ML VIAL SQ PRN; +LISI-538 PO; -LISI20TA33 PO; +MUPIROCIN 2% OINT 22 GM TUBE TOP ONE; -PERCOCET PO; +ceFAZolin SOD 2 GM in IV 1 EA IV ONE
[2020-04-13] MEDS ORDERED: fentaNYL 100 MCG/2 ML INJECTION (J3010) IV PRN ×2 (09:00→15:15)
[2020-04-13] MEDS ORDERED: MIDAZOLAM INJ 2MG/2ML VIAL (J2250 PER 1MG) IV PRN (09:00)
[2020-04-13] MEDS ORDERED: LR 1,000 ML IV ONE (09:00)
[2020-04-13] MEDS ORDERED: ceFAZolin 1GM VIAL (J0690 PER 500MG) As Ordered ONE (09:32)
[2020-04-13] MEDS ORDERED: BUPIVACAINE LIPOSOME/PF 1.3% 20ML VIAL (13.3MG/ML)(EXPAREL)(C9290 PER1MG) As Ordered ONE (09:32)
[2020-04-13] MEDS ORDERED: CETACAINE SPRAY 5GM As Ordered ONE (09:32)
[2020-04-13] MEDS ORDERED: BUPIVACAINE HCL 0.5% 10ML VIAL As Ordered ONE ×2 (09:32→10:28)
[2020-04-13] MEDS ORDERED: BUPIVACAINE HCL 0.25% 10ML VIAL As Ordered ONE (10:16)
[2020-04-13] MEDS ORDERED: EPIDURAL/PCA KEYS XX PRN (10:30)
[2020-04-13] MEDS ORDERED: ONDANSETRON 4MG/2ML VIAL IV PRN ×3 (10:30→15:15)
[2020-04-13] MEDS ORDERED: diphenhydrAMINE 50MG/ML VIAL (J1200) IV PRN (10:30)
[2020-04-13] MEDS ORDERED: METOCLOPRAMIDE INJ 10MG/2ML VIAL (J2765 PER 1) IV PRN (10:30)
[2020-04-13] MEDS ORDERED: WALLBOXKEY XX PRN (10:30)
[2020-04-13] MEDS ORDERED: NALOXONE INJ 0.4MG/1ML VIAL (J2310 PER 1MG) IV PRN (10:30)
[2020-04-13] MEDS ORDERED: ROCURONIUM BROMIDE 50 MG/5 ML VIAL As Ordered ONE ×3 (10:31→12:11)
[2020-04-13] MEDS ORDERED: fentaNYL 250 MCG/5 ML INJECTION (J3010) As Ordered ONE (10:31)
[2020-04-13] MEDS ORDERED: MIDAZOLAM INJ 2MG/2ML VIAL (J2250 PER 1MG) As Ordered ONE (10:31)
[2020-04-13] MEDS ORDERED: GLYCOPYRROLATE INJ 0.2 MG/ML 2 ML VIAL As Ordered ONE (10:31)
[2020-04-13] MEDS ORDERED: propofoL 200 MG/20 ML VIAL As Ordered ONE (10:31)
[2020-04-13] MEDS ORDERED: dexameTHASONE 4 MG/ML 1ML VIAL (J1100 PER 1MG) As Ordered ONE (10:31)
[2020-04-13] MEDS ORDERED: LIDOCAINE 2% 100MG/5ML SDV (FOR ANES.) As Ordered ONE (10:31)
[2020-04-13] MEDS ORDERED: SUGAMMADEX SODIUM 500 MG/5 ML VIAL (BRIDION) As Ordered ONE (10:31)
[2020-04-13] MEDS ORDERED: PHENYLephrine 500MCG 5ML (100MCG/ML) SYRINGE As Ordered ONE (11:20)
[2020-04-13] MEDS ORDERED: PHENYLEPHRINE 10MG/ML 1ML VIAL (J2370 PER 1) As Ordered ONE (11:37)
[2020-04-13] MEDS ORDERED: BUPIVACAINE HCL 0.25% 30ML VIAL As Ordered ONE (11:43)
[2020-04-13] MEDS ORDERED: ONDANSETRON 4MG/2ML VIAL As Ordered ONE (13:40)
[2020-04-13] MEDS ORDERED: ACETAMINOPHEN TAB 650MG DOSE (2X325MG) PO PRN (14:30)
[2020-04-13] MEDS ORDERED: LEVALBUTEROL 1.25 MG/0.5 ML CONCENTRATE NEB NEB PRN (14:30)
[2020-04-13] MEDS ORDERED: BISACODYL 10 MG SUPP PR PRN (14:30)
[2020-04-13] MEDS ORDERED: NORCO, ANEXSIA 5/325MG TABLET (HYDROcodone/ACETAMINOPHEN) PO PRN (14:30)
[2020-04-13] MEDS ORDERED: PERCOCET 5MG/325MG TAB PO PRN (14:30)
[2020-04-13] MEDS ORDERED: KETOROLAC 60MG 2ML VIAL As Ordered ONE (14:32)
[2020-04-13] MEDS: FENTANYL/BUPIVACAINE/NACL BAG 250 ML EPIDURAL SCH (15:00)
[2020-04-13 15:09] LABS: ABG BASE EXCESS -6.4 (-2.0-2.0); ABG HCO3 18.7 MEQ/L (22.0-26.0); ABG O2 SATURATION 99.3 % (95.0-99.0); ABG PARTIAL PRESSURE CO2 36.1 mmHg (35.0-45.0); ABG PARTIAL PRESSURE O2 163.8 mmHg (75.0-100.0); ABG STANDARD HCO3 19.3 MEQ/L (22.0-26.0); ABG TOTAL CO2 19.8 MEQ/L (23.0-31.0); ABG pH (ARTERIAL) 7.332 UNITS (7.350-7.450)
[2020-04-13 15:12] LABS: BASO % 0.2 % (0.0-1.0); EOS % 0.1 % (0.0-3.0); HEMATOCRIT 41.1 % (42.0-52.0); HEMOGLOBIN 13.7 g/dl (13.5-17.5); LYMPH # 0.7 10^3/uL (1.5-5.0); LYMPH % 4.2 % (24.0-44.0); MEAN CORPUSCULAR HEMOGLOBIN 31.3 pg (27.0-33.0); MEAN CORPUSCULAR HGB CONC 33.3 g/dl (32.0-36.5); MEAN CORPUSCULAR VOLUME 93.8 fl (80.0-96.0); MONO # 0.6 10^3/uL (0.0-0.8); MONO % 3.4 % (0.0-5.0); NEUTROPHILS # 15.2 10^3/uL (1.5-8.5); NEUTROPHILS % 91.6 % (36.0-66.0); PLATELET COUNT, AUTOMATED 292 10^3/uL (150-450); RED BLOOD COUNT 4.38 10^6/uL (4.30-6.10); WHITE BLOOD COUNT 16.6 10^3/uL (4.0-10.0)
[2020-04-13] MEDS ORDERED: oxyCODONE 5MG TAB PO PRN (15:15)
[2020-04-13] MEDS ORDERED: LR 1,000 ML IV SCH (15:15)
[2020-04-13 15:31] LABS: BLOOD UREA NITROGEN 10 MG/DL (7-18); CARBON DIOXIDE LEVEL 22 MEQ/L (21-32); CHLORIDE LEVEL 102 MEQ/L (98-107); CREATININE FOR GFR 0.75 MG/DL (0.70-1.30); GLOMERULAR FILTRATION RATE > 60.0 (>49); GLUCOSE, FASTING 147 MG/DL (70-100); POTASSIUM SERUM 4.6 MEQ/L (3.5-5.1); SODIUM LEVEL 134 MEQ/L (136-145)
[2020-04-13 15:32] LABS: CALCIUM LEVEL 8.9 MG/DL (8.8-10.2)
--- NOTE | 2020-04-13 16:35 | REP ---
INDICATION: s/p left lower lobectomy, lung ca. COMPARISON: Comparison chest x-ray 06 April 2020. TECHNIQUE: Portable upright AP chest radiograph. FINDINGS: There are 2 left-sided chest tubes at the apex. The patient is status post left thoracotomy and lower lobectomy. There is some pleural opacity at the left base medially behind the heart. The right lung shows right apical pleuroparenchymal fibrosis unchanged. It is otherwise clear. There is an epidural catheter noted along with monitoring electrodes.. IMPRESSION: Status post left thoracotomy partial pneumonectomy. Two left apical chest tubes. Satisfactory postoperative chest.. <Electronically signed by Joey Hatch > 04/13/20 [id number]
[2020-04-13] MEDS: PANTOPRAZOLE 40MG TAB (PROTONIX) PO SCH (17:37)
[2020-04-13] MEDS: MOM 30ML SUSPENSION UDC PO SCH (17:37)
[2020-04-13] MEDS: ceFAZolin SOD 1 GM in D5W MINI-BAG PLUS 50 ML IV SCH (17:38)
[2020-04-13] MEDS: KCL 20MEQ IN D5/NS 1000ML 1,000 ML IV SCH (17:38)
[2020-04-13] MEDS: LEVALBUTEROL 1.25 MG/0.5 ML CONCENTRATE NEB NEB SCH (19:39)
[2020-04-13] MEDS: HEPARIN SOD (PORCINE) 5000UNITS/ML 1ML VIAL/SYRINGE SC SCH (21:23)
[2020-04-13] MEDS: DOCUSATE SODIUM 100MG CAPSULE PO SCH (21:23)
[2020-04-13] MEDS: KETOROLAC 30 MG/ML 1ML VIAL IV SCH (21:23)
[2020-04-13] MEDS: lisinopriL 10 MG TAB PO SCH (21:23)
[2020-04-13] MEDS: ATORVASTATIN 20 MG TAB PO SCH (21:23)
[2020-04-14] VITALS (16 sets, daily range): BP systolic 93–146; BP diastolic 51–90
[2020-04-14] MEDS: LEVALBUTEROL 1.25 MG/0.5 ML CONCENTRATE NEB NEB SCH ×4 (01:24→20:21)
[2020-04-14] MEDS: KCL 20MEQ IN D5/NS 1000ML 1,000 ML IV SCH ×2 (02:06→17:40)
[2020-04-14] MEDS: KETOROLAC 30 MG/ML 1ML VIAL IV SCH ×4 (02:06→21:59)
[2020-04-14] MEDS: ceFAZolin SOD 1 GM in D5W MINI-BAG PLUS 50 ML IV SCH ×3 (02:06→18:44)
[2020-04-14 05:39] LABS: ABG HCO3 23.4 MEQ/L (22.0-26.0); ABG O2 SATURATION 97.4 % (95.0-99.0); ABG PARTIAL PRESSURE CO2 37.8 mmHg (35.0-45.0); ABG STANDARD HCO3 23.7 MEQ/L (22.0-26.0); ABG TOTAL CO2 24.5 MEQ/L (23.0-31.0); ABG pH (ARTERIAL) 7.409 UNITS (7.350-7.450)
[2020-04-14 05:44] LABS: BASO % 0.2 % (0.0-1.0); EOS % 0.2 % (0.0-3.0); HEMATOCRIT 35.6 % (42.0-52.0); HEMOGLOBIN 11.8 g/dl (13.5-17.5); LYMPH # 1.4 10^3/uL (1.5-5.0); LYMPH % 12.3 % (24.0-44.0); MEAN CORPUSCULAR HEMOGLOBIN 31.2 pg (27.0-33.0); MEAN CORPUSCULAR HGB CONC 33.1 g/dl (32.0-36.5); MEAN CORPUSCULAR VOLUME 94.2 fl (80.0-96.0); MONO # 1.2 10^3/uL (0.0-0.8); NEUTROPHILS # 8.5 10^3/uL (1.5-8.5); NEUTROPHILS % 75.9 % (36.0-66.0); PLATELET COUNT, AUTOMATED 248 10^3/uL (150-450); RED BLOOD COUNT 3.78 10^6/uL (4.30-6.10); WHITE BLOOD COUNT 11.1 10^3/uL (4.0-10.0)
--- NOTE | 2020-04-14 06:07 | REPVR ---
PROCEDURE INFORMATION: Exam: XR Chest, 2 Views Exam date and time: 04/14/2020 5:24 AM Age: 70 years old Clinical indication: Other: Lobectomy; Additional info: S/P left lower lobectomy, lung CA TECHNIQUE: Imaging protocol: XR of the chest Views: 2 views. COMPARISON: IA PORTABLE CHEST X-RAY 04/13/2020 3:05 PM FINDINGS: Tubes, catheters and devices: Two left-sided chest tubes seen in the left lung apex. There is either hiatal hernia or diaphragmatic hernia with the gastric bubble seen posterior to the heart. Lungs: There is left basilar atelectatic changes versus infiltrates. Pleural space: There is small left-sided pleural effusion . Heart/Mediastinum: Unremarkable. No cardiomegaly. Vasculature: There is a small amount of air outlining the aortic knob. Bones/joints: Unremarkable. Soft tissues: Lateral chest and supraclavicular subcutaneous emphysema is seen. IMPRESSION: 1. Two left-sided chest tubes at the left lung apex with no obvious pneumothorax. 2. Small amount of lateral chest and supraclavicular subcutaneous emphysema. 3. Small amount of air outlining the aortic knob could be due to small pneumomediastinum or artifactual with air between atelectatic lung tissue and the aortic knob. If indicated CT of the chest may be obtained for further evaluation. 4. Moderate sliding hiatal hernia versus are from attic hernia with the stomach seen in the retrocardiac space. 5. Small left-sided pleural effusion with left basilar atelectatic changes versus infiltrates. Electronically signed by: Noman Smith On 04/14/2020 06:06:40 AM
[2020-04-14 06:13] LABS: BLOOD UREA NITROGEN 16 MG/DL (7-18); CALCIUM LEVEL 8.3 MG/DL (8.8-10.2); CARBON DIOXIDE LEVEL 24 MEQ/L (21-32); CHLORIDE LEVEL 105 MEQ/L (98-107); CREATININE FOR GFR 0.92 MG/DL (0.70-1.30); GLOMERULAR FILTRATION RATE > 60.0 (>49); GLUCOSE, FASTING 125 MG/DL (70-100); POTASSIUM SERUM 4.8 MEQ/L (3.5-5.1); SODIUM LEVEL 135 MEQ/L (136-145)
[2020-04-14] MEDS: MOM 30ML SUSPENSION UDC PO SCH (08:32)
[2020-04-14] MEDS: ASPIRIN ENTERIC 325 MG TAB PO SCH (08:33)
[2020-04-14] MEDS: amLODIPine 5 MG TAB PO SCH (08:34)
[2020-04-14] MEDS: PANTOPRAZOLE 40MG TAB (PROTONIX) PO SCH (08:35)
[2020-04-14] MEDS: DOCUSATE SODIUM 100MG CAPSULE PO SCH ×2 (08:35→21:57)
[2020-04-14] MEDS: HEPARIN SOD (PORCINE) 5000UNITS/ML 1ML VIAL/SYRINGE SC SCH ×2 (08:36→21:59)
--- NOTE | 2020-04-14 08:53 | IPN ---
PROGRESS NOTE DATE: 04/14/2020 SUBJECTIVE: This is now the first postoperative day for Mr. Baird who has been stable out of surgery. His pain is being well-controlled with the epidural. He only has a slight ache in his left shoulder. He is on room air. OBJECTIVE: VITAL SIGNS: Show a T-max of 98.2 with a heart rate that ranges between 63 and 78 in sinus rhythm. Respiratory rate of 18 to 20 without the use of accessory muscles. He was 96% to 99% saturated on room air and whose blood pressure is ranging between 103/59 to 132/59. INTAKE AND OUTPUT: Over the past 24 hours has been recorded as 1850 in and 677 out for a positivity of 1173 mL. He has put 217 out the chest tube and 410 in urine. He is making approximately 30 mL/hour in urine output. Weight is pending. RESPIRATORY: He has equal breath sounds on either side with some rales on the left side. Percussion notes are full to the diaphragm. There is no subcutaneous emphysema on the chest wall. CARDIAC: Without murmurs, clicks, gallops, or rubs. I cannot feel his PMI. S1 and S2 are normal. ABDOMEN: Soft and nontender. Bowel sounds are positive. There is no hepatomegaly. No CVA tenderness. EXTREMITIES: Show no pretibial edema. No calf tenderness. No differential swelling of the upper extremities. SKIN: Warm, dry, and perfused without cyanosis or mottling, including that of the nail beds and knees. NECK: Supple. There is no jugular venous distention. No subcutaneous emphysema. Trachea is midline. MOUTH: Shows the mucous membranes to be pink and moist. Lips and gums without lesions and no thrush. EYES: Show his pupils equal and reactive. Extraocular movements are intact. Sclerae nonicteric. NEUROLOGIC: Shows II through XII intact. Normal gross motor, gross sensation intact. Gait is not tested. PSYCHIATRIC: Shows him to be awake, alert, and oriented x3 with appropriate mood and affect and conversational. LABORATORY DATA: His white count today is 11.1 with hemoglobin and hematocrit of 11.8 and 35.6 down from 13.7 and 41.1 yesterday secondary to hemodilution. Platelet count is 248,000 and stable. Differential shows 75% neutrophils, 12% lymphocytes, and 11% monocytes. There are no immature forms and no toxic granulations. His chemistries today show essentially normal electrolytes with BUN and creatinine of 16 and 0.92 with a glucose of 125 and a calcium of 8.3. He continues on Toradol. IMAGING STUDIES: His chest x-ray today shows his lungs fully expand to the chest wall. There is no subcutaneous emphysema. Costophrenic angles are sharp. I see no infiltrates. There is obligate volume loss from the lobectomy on the left side with a slight mediastinal shift to the left. IMPRESSION: 1. Postoperative day #1 status post left lower lobectomy. 2. Probable adenocarcinoma of the lung; final pathology pending. 3. Chronic obstructive pulmonary disease (COPD). 4. Peripheral vascular disease. 5. Coronary artery disease. 6. Hypertension. PLAN AND DISCUSSION: I will not diurese him today nor will I give him more fluid. We will continue his chest tubes on suction. I will transfer him to the progressive care unit (PCU). I am very gratified so far of his progress. He will start p.o. intake today. Will continue on the subcutaneous prophylactic heparin. I am not able to restart his Plavix for his axillobifemoral graft as he has an epidural in.
[2020-04-14] MEDS: FENTANYL/BUPIVACAINE/NACL BAG 250 ML EPIDURAL SCH (19:21)
[2020-04-14] MEDS: lisinopriL 10 MG TAB PO SCH (21:57)
[2020-04-14] MEDS: ATORVASTATIN 20 MG TAB PO SCH (21:58)
[2020-04-15] VITALS (7 sets, daily range): BP systolic 93–140; BP diastolic 58–76
[2020-04-15] MEDS: LEVALBUTEROL 1.25 MG/0.5 ML CONCENTRATE NEB NEB SCH ×4 (01:10→19:56)
[2020-04-15] MEDS: KETOROLAC 30 MG/ML 1ML VIAL IV SCH ×4 (02:12→21:25)
[2020-04-15] MEDS: ceFAZolin SOD 1 GM in D5W MINI-BAG PLUS 50 ML IV SCH ×2 (02:13→09:00)
[2020-04-15 06:11] LABS: BASO % 0.3 % (0.0-1.0); EOS # 0.2 10^3/uL (0.0-0.5); HEMATOCRIT 35.5 % (42.0-52.0); HEMOGLOBIN 11.5 g/dl (13.5-17.5); LYMPH # 1.2 10^3/uL (1.5-5.0); LYMPH % 9.8 % (24.0-44.0); MEAN CORPUSCULAR HGB CONC 32.4 g/dl (32.0-36.5); MEAN CORPUSCULAR VOLUME 95.7 fl (80.0-96.0); MONO # 1.1 10^3/uL (0.0-0.8); MONO % 9.4 % (0.0-5.0); NEUTROPHILS # 9.1 10^3/uL (1.5-8.5); PLATELET COUNT, AUTOMATED 250 10^3/uL (150-450); RED BLOOD COUNT 3.71 10^6/uL (4.30-6.10); WHITE BLOOD COUNT 11.7 10^3/uL (4.0-10.0)
[2020-04-15 06:31] LABS: BLOOD UREA NITROGEN 14 MG/DL (7-18); CALCIUM LEVEL 8.6 MG/DL (8.8-10.2); CARBON DIOXIDE LEVEL 26 MEQ/L (21-32); CHLORIDE LEVEL 105 MEQ/L (98-107); CREATININE FOR GFR 0.87 MG/DL (0.70-1.30); GLOMERULAR FILTRATION RATE > 60.0 (>49); GLUCOSE, FASTING 121 MG/DL (70-100); POTASSIUM SERUM 4.5 MEQ/L (3.5-5.1); SODIUM LEVEL 137 MEQ/L (136-145)
--- NOTE | 2020-04-15 08:43 | REP ---
INDICATION: s/p left lower lobectomy, lung ca COMPARISON: 04/14/2020 TECHNIQUE: PA and lateral. FINDINGS: Two left-sided chest tubes and left-sided pleuroparenchymal changes including left basilar/retrocardiac atelectasis suggested. Right hemithorax demonstrates relatively chronic stable changes although subtle basilar atelectasis cannot be excluded as well. The mediastinum and cardiac silhouette are normal/stable. Skeletal structures are intact. IMPRESSION: Postoperative changes involving the left hemithorax along with minimal left basilar/retrocardiac atelectasis. <Electronically signed by Oziel Williamson > 04/15/20 0885
[2020-04-15] MEDS ORDERED: FUROSEMIDE 40MG/4ML VIAL (J1940) IV ONE (08:45)
[2020-04-15] MEDS: ASPIRIN ENTERIC 325 MG TAB PO SCH (08:58)
[2020-04-15] MEDS: PANTOPRAZOLE 40MG TAB (PROTONIX) PO SCH (08:58)
[2020-04-15] MEDS: DOCUSATE SODIUM 100MG CAPSULE PO SCH ×2 (08:58→21:23)
[2020-04-15] MEDS: amLODIPine 5 MG TAB PO SCH (08:58)
[2020-04-15] MEDS: MOM 30ML SUSPENSION UDC PO SCH (08:58)
[2020-04-15] MEDS: HEPARIN SOD (PORCINE) 5000UNITS/ML 1ML VIAL/SYRINGE SC SCH ×2 (08:59→21:25)
--- NOTE | 2020-04-15 10:01 | RO ---
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 SURGEON: Emory Phan M.D. PROCEDURES: 1. Left upper lobectomy. 2. Mediastinal node dissection. 3. Bronchoscopy. 4. Five level rib block. WHEELCHAIR VAN DRIVER: ANESTHESIA: FINDINGS: The left lower lobe contained an approximate 1.5 cm lesion. He had a complete fissure, but there was increased inflammatory response at the depth of the fissure, which made the dissection more difficult than usual. His mediastinal node dissection did not show any mediastinal nodes. Complete dissection was done up to the phrenic nerve and there was absolutely no nodes noted. Pictures were taken. DESCRIPTION OF PROCEDURE: Under single lumen endotracheal intubation, bronchoscope was passed into the tracheobronchial tree. There were no endobronchial lesions and there were scant secretions. Each segment and subsegment was thoroughly inspected. Prior to turning the patient, he had known previous axillobifemoral bypass graft. The posterior tibial pulse was present by Doppler, but the dorsalis pedis pulse was not. The pulse was continuously monitored by a pulse oximeter on the great toe. The patient was then turned into the right lateral decubitus position with care being taken to pad with foam the path of the axillobifemoral graft. He was then prepped and draped in the usual sterile fashion and a posterolateral incision was made. The latissimus dorsi was divided as was a slip for the serratus anterior. The chest was then entered through the fifth intercostal space above the sixth rib. The fissure was noted to be fairly complete, but because of inflammation at the bottom of the fissure the dissection was a little more tedious than usual. When I could not find the artery in the fissure itself, the posterior mediastinal pleura was then dissected by reflecting along anteriorly. The intralobar pulmonary artery was then found and this dissection was continued towards the fissure. A right angle clamp was then placed, which showed the direction and location of the interlobar intrafissural pulmonary artery. This was then dissected with bridging veins being controlled by the use of a harmonic scalpel. Finally the artery was found. The apical basal segmental artery was also noted, and the posterior portion of the fissure was completed by use of an [place] JULEE stapler. The apical basilar branch was then dissected out surrounded by a vessel loop and then stapled with a vascular stapler. The interlobar pulmonary interlobar pulmonary artery was then dissected further. A lingular branch was noted and the lobar artery was then divided by use of the vascular stapler. The inferior pulmonary ligament was then divided up to the inferior pulmonary vein. The vein was then dissected and again, there was a lot of inflammatory response. The phrenic nerve was noted and it was carefully preserved. Finally, the pulmonary vein was dissected free and surrounded with a vessel loop and stapled with a vascular stapler. This then left the bronchus. The bronchus was widely splayed and did not have a discrete takeoff. Therefore, the widely splayed branches were dissected out and then divided by use of a 4.8 JULEE stapler. The lung was removed and sent to pathology for examination. Mediastinal node dissection was then undertaken by incising the mediastinal pleural over the AP window. After an extensive dissection all the way up to the phrenic nerve anteriorly and posteriorly to the trachea, there were absolutely no nodes found. Pictures were taken. The vagus nerve along with the recurrent laryngeal nerve were identified. The bronchus was tested to 30 cm of water and did not show an air leak. There was a small parenchymal air leak. The air leak along with the staple lines and the mediastinal AP window space were covered with Tisseel glue. A five level rib block was then undertaken consisting of Marcaine and Exparel. Two chest tubes were placed, number 24 straight and curved anteriorly and posteriorly. The ribs were then reapproximated with the use of #1 Prolene [id number] sutures. Prior to tying the sutures, the lung was re-inflated. The extrathoracic muscles were reapproximated by use of 0-Vicryl running suture, the subcutaneous tissue by the use of 3-0 Vicryl suture, and the skin by use of 3-0 Monocryl subcuticular suture. The patient was then turned again to the supine position and the posterior tibial artery was then checked with Doppler and was found to have pulsatile flow. The patient tolerated the procedure well and left the operating room in satisfactory condition to the recovery room. CAROL
--- NOTE | 2020-04-15 12:23 | IPN ---
PROGRESS NOTE DATE: 04/15/2020 This is now the second postoperative day for Mr. Baird. His pain is being well controlled at the epidural site, and there is no air leak. His vital signs show a maximum temperature of 98.5 with a heart rate that ranges between 83-91 in a sinus rhythm, respiratory rate of 18-20 without the use of accessory muscles, who is 96% saturated on room air, and whose blood pressure is ranging between 140/76 to 129/70. His intake and output for the past 24 hours has been recorded as 1900 in and 1560 out, for a positivity of 340 mL. He has put 610 mL out of the chest tube. Weight today is 76.1 kg compared to 76 kg on postoperative day #1. PHYSICAL EXAMINATION: He has equal breath sounds on either side. There are some diffuse crackles and rales on the left side. Percussion note is full to the diaphragm. Cardiac exam is without murmurs, clicks, gallops, or rubs. I cannot feel his point of maximal impulse (PMI). S1 and S2 are normal. Abdomen is soft and nontender. Bowel sounds are positive. There is no hepatomegaly. No costovertebral angle (CVA) tenderness. He has not yet had a bowel movement, but he is passing flatus. Extremities show no pretibial edema, no calf tenderness, no differential swelling of the upper extremities. Skin is warm, dry, and perfused without cyanosis or mottling, including that of the nailbeds and knees. Neck is supple. There is no jugular venous distention. No subcutaneous emphysema. Trachea is midline. Mouth shows the mucous membranes to be pink and moist. Lips and commissures without lesions. No thrush. Eyes show his pupils to be equal and reactive. Extraocular motion intact. Sclerae anicteric. Neurologic shows II-XII intact. Normal gross motor, gross sensation intact. Gait is not tested. Psychiatric shows him to be awake, alert, and oriented times three with appropriate mood and affect and conversational. DIAGNOSTIC STUDIES: His white count today is 11.7, unchanged from yesterday, with a hemoglobin and hematocrit of 11.5 and 35.5, also essentially unchanged from yesterday. Platelet count is 250 and stable. Differential shows 78% neutrophils, 9% lymphocytes, and 9% monocytes. There are no immature forms or toxic granulations. Electrolytes are normal with a BUN and creatinine of 15 and 0.87, a glucose of 121, and a calcium of 8.6. His chest x-ray shows his lungs fully expanded to the chest wall. There is obligate volume loss from the lobectomy. Costophrenic angles are sharp. There is no subcutaneous emphysema. Chest tubes are in good place. Pathology is still pending. IMPRESSION: 1. Postoperative day #2, status post left lower lobectomy. 2. Chronic obstructive pulmonary disease (COPD). 3. Adenocarcinoma of the lung, final pathology pending for staging. 4. Peripheral vascular disease, status post an axial bifemoral graft. 5. Coronary artery disease. 6. Hypertension. PLAN AND DISCUSSION: The axial bifemoral graft has a pulse in it. He was on Plavix for this, but I cannot restart him until the epidural is weaned. I will diurese him today.
[2020-04-15] MEDS: lisinopriL 10 MG TAB PO SCH (21:24)
[2020-04-15] MEDS: ATORVASTATIN 20 MG TAB PO SCH (21:25)
[2020-04-16] VITALS: BP 126/70
[2020-04-16] MEDS: LEVALBUTEROL 1.25 MG/0.5 ML CONCENTRATE NEB NEB SCH ×4 (01:44→19:47)
[2020-04-16] MEDS: FENTANYL/BUPIVACAINE/NACL BAG 250 ML EPIDURAL SCH (01:48)
[2020-04-16] MEDS: KETOROLAC 30 MG/ML 1ML VIAL IV SCH ×4 (02:23→20:10)
[2020-04-16 04:00] VITALS: BP 142/67
[2020-04-16 05:04] LABS: BASO % 0.4 % (0.0-1.0); EOS # 0.4 10^3/uL (0.0-0.5); EOS % 3.6 % (0.0-3.0); HEMATOCRIT 35.3 % (42.0-52.0); HEMOGLOBIN 11.5 g/dl (13.5-17.5); LYMPH # 1.4 10^3/uL (1.5-5.0); LYMPH % 12.7 % (24.0-44.0); MEAN CORPUSCULAR HEMOGLOBIN 31.3 pg (27.0-33.0); MEAN CORPUSCULAR HGB CONC 32.6 g/dl (32.0-36.5); MEAN CORPUSCULAR VOLUME 96.2 fl (80.0-96.0); MONO # 1.2 10^3/uL (0.0-0.8); MONO % 10.2 % (0.0-5.0); NEUTROPHILS # 8.2 10^3/uL (1.5-8.5); NEUTROPHILS % 72.6 % (36.0-66.0); PLATELET COUNT, AUTOMATED 248 10^3/uL (150-450); RED BLOOD COUNT 3.67 10^6/uL (4.30-6.10); WHITE BLOOD COUNT 11.3 10^3/uL (4.0-10.0)
[2020-04-16 05:37] LABS: BLOOD UREA NITROGEN 22 MG/DL (7-18); CALCIUM LEVEL 8.8 MG/DL (8.8-10.2); CARBON DIOXIDE LEVEL 26 MEQ/L (21-32); CHLORIDE LEVEL 106 MEQ/L (98-107); GLOMERULAR FILTRATION RATE > 60.0 (>49); GLUCOSE, FASTING 108 MG/DL (70-100); POTASSIUM SERUM 4.3 MEQ/L (3.5-5.1); SODIUM LEVEL 137 MEQ/L (136-145)
[2020-04-16] MEDS ORDERED: FUROSEMIDE 40MG/4ML VIAL (J1940) IV ONE (07:30)
[2020-04-16 08:04] VITALS: BP 91/57
--- NOTE | 2020-04-16 08:14 | REP ---
INDICATION: s/p left lower lobectomy, lung ca COMPARISON: 04/15/2020 TECHNIQUE: PA and lateral. FINDINGS: Two left-sided chest tubes and left-sided pleuroparenchymal changes including volume loss, basilar atelectasis, and small left apical pneumothorax are relatively unchanged. Mediastinum and cardiac silhouette are stable and within normal limits. Right hemithorax is well aerated although a very small right basilar pleural reaction cannot be excluded.. Skeletal structures are intact. IMPRESSION: Relatively stable left-sided postsurgical changes. Cannot exclude very small right basilar pleural reaction. <Electronically signed by Oziel Williamson > 04/16/20 [id number]
[2020-04-16] MEDS: amLODIPine 5 MG TAB PO SCH (08:30)
[2020-04-16] MEDS: MOM 30ML SUSPENSION UDC PO SCH (08:32)
[2020-04-16] MEDS: ASPIRIN ENTERIC 325 MG TAB PO SCH (08:32)
[2020-04-16] MEDS: HEPARIN SOD (PORCINE) 5000UNITS/ML 1ML VIAL/SYRINGE SC SCH ×2 (08:32→20:10)
[2020-04-16] MEDS: PANTOPRAZOLE 40MG TAB (PROTONIX) PO SCH (08:32)
[2020-04-16] MEDS: DOCUSATE SODIUM 100MG CAPSULE PO SCH ×2 (08:34→20:10)
--- NOTE | 2020-04-16 10:39 | IPN ---
PROGRESS NOTE DATE: 04/16/2020 SUBJECTIVE: This is now the third postoperative day for Mr. Baird. He is dong quite well and his pain is being well-controlled. There is no air leak. OBJECTIVE: VITAL SIGNS: Show a T-max of 98.5 with a heart rate that ranges between 83 and 89 in sinus rhythm. Respiratory rate that is constant at 20 who is 96% to 100% saturated on room air and whose blood pressure is ranging between 142/67 and 91/57. INTAKE AND OUTPUT: Over the past 24 hours has been recorded as 1658 in and 1485 out for a positivity of 173 mL. He has put 335 mL out the chest tube and there is no air leak. His weight today is 72.8 kg compared to 76.1 kg yesterday. RESPIRATORY: He has equal breath sounds on either side with some faint rales and rhonchi on the left side. Percussion notes are full to the diaphragm. CARDIAC: Without murmurs, clicks, gallops, or rubs. I cannot feel his PMI. S1 and S2 are normal. ABDOMEN: Soft, nontender, and slightly tympanitic. EXTREMITIES: Show no pretibial edema. No calf tenderness. No differential swelling of the upper extremities. SKIN: Warm, dry, and perfused without cyanosis or mottling, including that of the nail beds and knees. NECK: Supple. There is no jugular venous distention. No subcutaneous emphysema. Trachea is midline. MOUTH: Shows the mucous membranes to be pink and moist. Lips and gums without lesions and no thrush. EYES: Show his pupils equal and reactive. Extraocular movements are intact. Sclerae nonicteric. NEUROLOGIC: Shows II through XII intact. Normal gross motor, gross sensation intact. Gait is not tested. PSYCHIATRIC: Shows him to be awake, alert, and oriented x3 with appropriate mood and affect and conversational. LABORATORY DATA: His white count today is 11.3 with hemoglobin and hematocrit of 11.5 and 35.3 unchanged from yesterday with a platelet count of 248,000 and stable. Differential shows 72% neutrophils, 12% lymphocytes, and 10% monocytes. There are no immature forms and no toxic granulations. His chemistries today show normal electrolytes with a BUN and creatinine of 22 and 0.90. Glucose is 108 with a calcium of 8.8. IMAGING STUDIES: His chest x-ray shows his lungs fully expand to the chest wall. Costophrenic angles are sharp and chest tubes are in good place. I see no infiltrates. IMPRESSION: 1. Postoperative day #3 status post left lower lobectomy. 2. Chronic obstructive pulmonary disease. 3. Adenocarcinoma of the lung characterized with a maximum tumor dimension of 2.3 and all nodes negative, making him a T1c N0 M0, which maps out to stage 1A3. 4. Peripheral vascular disease status post axillobifemoral graft. 5. Coronary artery disease. 6. Hypertension. PLAN AND DISCUSSION: I will take his chest tube off suction today. I will continue to diurese him. I am gratified that his staging came out 1A3 and he will therefore, not need adjuvant chemotherapy. I still cannot start his Plavix as he has the epidural in. I will hold his amlodipine today while I diurese him with Lasix as his blood pressure is a little soft.
[2020-04-16 12:00] VITALS: BP 125/71
[2020-04-16 15:28] VITALS: BP 98/64
[2020-04-16 20:00] VITALS: BP 114/63
[2020-04-16] MEDS: ATORVASTATIN 20 MG TAB PO SCH (20:10)
[2020-04-16] MEDS: lisinopriL 10 MG TAB PO SCH (20:12)
[2020-04-17] VITALS: BP 143/81
[2020-04-17] MEDS: LEVALBUTEROL 1.25 MG/0.5 ML CONCENTRATE NEB NEB SCH ×4 (01:10→20:06)
[2020-04-17] MEDS: FENTANYL/BUPIVACAINE/NACL BAG 250 ML EPIDURAL SCH (02:30)
[2020-04-17] MEDS: KETOROLAC 30 MG/ML 1ML VIAL IV SCH ×4 (03:53→21:11)
[2020-04-17 04:00] VITALS: BP 142/80
[2020-04-17 04:59] LABS: BASO % 0.4 % (0.0-1.0); EOS # 0.6 10^3/uL (0.0-0.5); EOS % 5.6 % (0.0-3.0); HEMATOCRIT 34.6 % (42.0-52.0); HEMOGLOBIN 11.5 g/dl (13.5-17.5); LYMPH # 1.2 10^3/uL (1.5-5.0); LYMPH % 12.1 % (24.0-44.0); MEAN CORPUSCULAR HEMOGLOBIN 31.9 pg (27.0-33.0); MEAN CORPUSCULAR HGB CONC 33.2 g/dl (32.0-36.5); MEAN CORPUSCULAR VOLUME 95.8 fl (80.0-96.0); NEUTROPHILS # 7.3 10^3/uL (1.5-8.5); NEUTROPHILS % 71.5 % (36.0-66.0); PLATELET COUNT, AUTOMATED 263 10^3/uL (150-450); RED BLOOD COUNT 3.61 10^6/uL (4.30-6.10); WHITE BLOOD COUNT 10.2 10^3/uL (4.0-10.0)
[2020-04-17 05:20] LABS: BLOOD UREA NITROGEN 26 MG/DL (7-18); CALCIUM LEVEL 8.8 MG/DL (8.8-10.2); CARBON DIOXIDE LEVEL 27 MEQ/L (21-32); CHLORIDE LEVEL 104 MEQ/L (98-107); CREATININE FOR GFR 0.82 MG/DL (0.70-1.30); GLOMERULAR FILTRATION RATE > 60.0 (>49); GLUCOSE, FASTING 92 MG/DL (70-100); POTASSIUM SERUM 4.9 MEQ/L (3.5-5.1); SODIUM LEVEL 138 MEQ/L (136-145)
[2020-04-17 07:34] VITALS: BP 140/76
[2020-04-17] MEDS ORDERED: SLF 3 ML SYR IV PRN (08:00)
--- NOTE | 2020-04-17 08:09 | REP ---
INDICATION: s/p left lower lobectomy, lung ca. COMPARISON: Comparison chest x-ray 16 April 2020. TECHNIQUE: Two views.. FINDINGS: There are 2 left-sided chest tubes again noted in place. Post thoracotomy volume loss is noted on the left. There is some pleural thickening along the left lower lateral chest wall. A epidural catheter is seen overlying the upper thoracic spine. Monitoring electrodes are noted. The right lung remains well inflated and clear. No new infiltrate on the left. Heart is not enlarged. IMPRESSION: No significant change from the prior study. [address].. <Electronically signed by Joey Hatch > 04/17/20 0894
[2020-04-17] MEDS: PANTOPRAZOLE 40MG TAB (PROTONIX) PO SCH (08:10)
[2020-04-17] MEDS: HEPARIN SOD (PORCINE) 5000UNITS/ML 1ML VIAL/SYRINGE SC SCH ×2 (08:10→21:12)
[2020-04-17] MEDS: ASPIRIN ENTERIC 325 MG TAB PO SCH (08:10)
[2020-04-17] MEDS: DOCUSATE SODIUM 100MG CAPSULE PO SCH ×2 (08:10→21:12)
[2020-04-17] MEDS: MOM 30ML SUSPENSION UDC PO SCH (08:10)
[2020-04-17] MEDS: amLODIPine 5 MG TAB PO SCH (08:10)
[2020-04-17] MEDS ORDERED: FUROSEMIDE 40MG/4ML VIAL (J1940) IV ONE (08:15)
[2020-04-17 11:46] VITALS: BP 114/65
[2020-04-17] MEDS: SLF 3 ML SYR IV SCH ×2 (13:01→21:13)
[2020-04-17 16:59] VITALS: BP 125/68
[2020-04-17 20:00] VITALS: BP 114/66
[2020-04-17] MEDS: lisinopriL 10 MG TAB PO SCH (21:12)
[2020-04-17] MEDS: ATORVASTATIN 20 MG TAB PO SCH (21:12)
[2020-04-18] VITALS: BP 145/71
[2020-04-18] MEDS: LEVALBUTEROL 1.25 MG/0.5 ML CONCENTRATE NEB NEB SCH ×4 (02:21→20:20)
[2020-04-18] MEDS: KETOROLAC 30 MG/ML 1ML VIAL IV SCH ×3 (03:51→16:02)
[2020-04-18] MEDS: FENTANYL/BUPIVACAINE/NACL BAG 250 ML EPIDURAL SCH (03:55)
[2020-04-18 04:00] VITALS: BP 140/67
[2020-04-18] MEDS: SLF 3 ML SYR IV SCH ×3 (05:14→20:43)
[2020-04-18 05:48] LABS: BASO % 0.3 % (0.0-1.0); EOS # 0.4 10^3/uL (0.0-0.5); EOS % 3.3 % (0.0-3.0); HEMATOCRIT 36.5 % (42.0-52.0); HEMOGLOBIN 11.7 g/dl (13.5-17.5); LYMPH # 1.1 10^3/uL (1.5-5.0); LYMPH % 9.1 % (24.0-44.0); MEAN CORPUSCULAR HEMOGLOBIN 30.9 pg (27.0-33.0); MEAN CORPUSCULAR HGB CONC 32.1 g/dl (32.0-36.5); MEAN CORPUSCULAR VOLUME 96.3 fl (80.0-96.0); MONO # 1.5 10^3/uL (0.0-0.8); MONO % 12.4 % (0.0-5.0); NEUTROPHILS # 8.8 10^3/uL (1.5-8.5); NEUTROPHILS % 74.6 % (36.0-66.0); PLATELET COUNT, AUTOMATED 304 10^3/uL (150-450); RED BLOOD COUNT 3.79 10^6/uL (4.30-6.10); WHITE BLOOD COUNT 11.8 10^3/uL (4.0-10.0)
[2020-04-18 06:12] LABS: BLOOD UREA NITROGEN 28 MG/DL (7-18); CALCIUM LEVEL 8.9 MG/DL (8.8-10.2); CARBON DIOXIDE LEVEL 29 MEQ/L (21-32); CHLORIDE LEVEL 103 MEQ/L (98-107); CREATININE FOR GFR 0.98 MG/DL (0.70-1.30); GLOMERULAR FILTRATION RATE > 60.0 (>49); GLUCOSE, FASTING 102 MG/DL (70-100); POTASSIUM SERUM 5.2 MEQ/L (3.5-5.1); SODIUM LEVEL 138 MEQ/L (136-145)
[2020-04-18 08:14] VITALS: BP 132/74
--- NOTE | 2020-04-18 08:30 | REP ---
INDICATION: s/p left lower lobectomy, lung ca. COMPARISON: Comparison chest x-ray 17 April 2020. TECHNIQUE: Two views.. FINDINGS: There are 2 left-sided chest tubes again noted in position. There is postoperative volume loss in left hemithorax. Epidural catheter is seen and monitoring electrodes are again noted. The right lung remains well inflated and clear. There is slight pleural thickening and blunting of the left lateral pleural angle. No new infiltrate. IMPRESSION: Stable postoperative changes. Two left chest tubes in place.. <Electronically signed by Joey Hatch > 04/18/20 [id number]
[2020-04-18] MEDS: PANTOPRAZOLE 40MG TAB (PROTONIX) PO SCH (08:35)
[2020-04-18] MEDS: ASPIRIN ENTERIC 325 MG TAB PO SCH (08:35)
[2020-04-18] MEDS: DOCUSATE SODIUM 100MG CAPSULE PO SCH ×2 (08:35→20:42)
[2020-04-18] MEDS: MOM 30ML SUSPENSION UDC PO SCH (08:35)
[2020-04-18] MEDS: amLODIPine 5 MG TAB PO SCH (08:36)
[2020-04-18] MEDS: HEPARIN SOD (PORCINE) 5000UNITS/ML 1ML VIAL/SYRINGE SC SCH ×2 (08:36→20:43)
[2020-04-18] MEDS ORDERED: FUROSEMIDE 40MG/4ML VIAL (J1940) IV ONE ×2 (09:45→16:00)
[2020-04-18 12:06] VITALS: BP 98/60
--- NOTE | 2020-04-18 13:27 | IPN ---
PROGRESS NOTE DATE: 04/17/2020 This is now the 4th postoperative day for Mr. Baird, status post a left lower lobectomy. His pain is being well controlled with the epidural and at the chest tube insertion sites. His vital signs show a maximum temperature of 99.0 with a heart rate that ranges between 73-92 in a sinus rhythm, respiratory rate of 17-18 without the use of accessory muscles, who is 99%-97% saturated and whose blood pressure is ranging between 114/65 to 143/81. His intake and output for the past 24 hours has been recorded as 1320 in and 565 out, for a positivity of 755 mL. He has put 265 mL out of the chest tube, and there is no air leak. PHYSICAL EXAMINATION: He has equal breath sounds on either side with rales and rhonchi, most of which clear with coughing. Percussion note is full to the diaphragm. Cardiac exam is without murmurs, clicks, gallops, or rubs. I cannot feel his point of maximal impulse (PMI). S1 and S2 are normal. Abdomen is soft and nontender. Bowel sounds are positive. There is no hepatomegaly. No costovertebral angle (CVA) tenderness. Extremities show no pretibial edema, no calf tenderness, no differential swelling of the upper extremities. Skin is warm, dry, and perfused without cyanosis or mottling, including that of the nailbeds and knees. Neck is supple. There is no jugular venous distention. No subcutaneous emphysema. Trachea is midline. Mouth shows the mucous membranes to be pink and moist. Lips and commissures without lesions. No thrush. Eyes show his pupils to be equal and reactive. Extraocular motion intact. Sclerae anicteric. Neurologic shows II-XII intact. Normal gross motor, gross sensation intact. Gait is not tested. Psychiatric shows him to be awake, alert, and oriented times three with appropriate mood and affect and conversational. His white count today is 10.2 with a hemoglobin and hematocrit of 11.5 and 34.6, unchanged from yesterday with a platelet count of 263. Differential shows 71% neutrophils, 12% lymphocytes, and 10% monocytes. There are no immature forms or toxic granulations. His electrolytes are normal with a BUN and creatinine of 26 and 0.82, a glucose of 92, and a calcium of 8.8. His pathology shows high-grade adenocarcinoma with a maximum tumor dimension of 2.3 with all nodes negative. It should be noted that during operation I could not find any AP window nodes. There are no intraparenchymal or hilar nodes. This therefore matched to a T1c N0, which maps to stage IA3. As such, he will not need adjuvant chemotherapy. His chest x-ray shows his lung fully expanded to the chest wall with sharp costophrenic angles, and the chest tubes in good place. There are no infiltrates. IMPRESSION: 1. Postoperative day #4 status post left lower lobectomy. 2. Chronic obstructive pulmonary disease (COPD). 3. Adenocarcinoma, stage IA3. 4. Peripheral vascular disease, status post axillobifemoral graft. 5. Coronary artery disease. 6. Hypertension. PLAN AND DISCUSSION: I will again diurese him today. His chest tubes are off suction. Hopefully I will be able to remove his chest tubes tomorrow. As noted above, he will not need adjuvant chemotherapy, as this is stage IA3 disease.
--- NOTE | 2020-04-18 14:21 | IPN ---
PROGRESS NOTE DATE: 04/18/2020 This is now the 5th postoperative day for Mr. Baird. His pain is being well controlled at the chest tube insertion site, and there is no air leak. His vital signs show a maximum temperature of 99.1 with a heart rate that ranges between 78-92 in a sinus rhythm, respiratory rate of 18-20 without the use of accessory muscles, who is 96%-97% saturated on room air. His blood pressure is ranging between 98/60 to 145/71. His intake and output for the past 24 hours has been recorded as 1700 in and 2275 out, for a negativity of 575 mL. He has put 325 mL out of the chest tube. PHYSICAL EXAMINATION: His lungs show equal breath sounds on either side. Percussion note is full to the diaphragm. He has normal vesicular sounds beneath. Cardiac exam is without murmurs, clicks, gallops, or rubs. I cannot feel his point of maximal impulse (PMI). S1 and S2 are normal. Abdomen is soft and nontender. Bowel sounds are positive. There is no hepatomegaly. No costovertebral angle (CVA) tenderness. Extremities show no pretibial edema, no calf tenderness, no differential swelling of the upper extremities. Skin is warm, dry, and perfused without cyanosis or mottling, including that of the nailbeds and knees. Neck is supple. There is no jugular venous distention. No subcutaneous emphysema. Trachea is midline. Mouth shows the mucous membranes to be pink and moist. Lips and commissures without lesions. No thrush. Eyes show his pupils to be equal and reactive. Extraocular motion intact. Sclerae anicteric. Neurologic shows II-XII intact. Normal gross motor, gross sensation intact. Gait is not tested. Psychiatric shows him to be awake, alert, and oriented times three with appropriate mood and affect and conversational. His white count today is 11.8 and hemoglobin and hematocrit of 11.7 and 36.5, respectively. This is increased from 11.5 and 34.6 yesterday secondary to hemoconcentration. Platelet count is 304 and stable. Differential shows 34% neutrophils, 9% lymphocytes, 12% monocytes. There are no immature forms or toxic granulations. His electrolytes show a marginally high potassium of 5.2. BUN and creatinine are 28 and 0.9, respectively, with a glucose of 102 and a calcium 8.9. His chest x-ray today shows his lung fully expanded to the chest wall. There is obligate volume loss from the lobectomy. Costophrenic angles are sharp. I see no infiltrates. IMPRESSION: 1. Postoperative day #5 status post left lower lobectomy. 2. Adenocarcinoma, stage IA3, T1c N0 M0. 3. Chronic obstructive pulmonary disease (COPD). 4. Peripheral vascular disease, status post axillobifemoral graft. 5. Coronary artery disease. 6. Hypertension. PLAN AND DISCUSSION: I will remove his chest tubes today. I will continue to diurese him. I can hear flow and bruit through the axillofemoral graft that is palpable. We will discontinue the [place] and wean the epidural to 1 mL an hour until off and give him oral pain medications during the wean. If all goes well, hopefully I will be able to discharge him in the morning.
[2020-04-18 16:10] VITALS: BP 109/63
[2020-04-18 20:00] VITALS: BP 114/66
[2020-04-18] MEDS: ATORVASTATIN 20 MG TAB PO SCH (20:42)
[2020-04-18] MEDS: lisinopriL 10 MG TAB PO SCH (20:43)
[2020-04-18] MEDS: PERCOCET 5MG/325MG TAB PO PRN (20:44)
[2020-04-19] VITALS: BP 142/68
[2020-04-19] MEDS: PERCOCET 5MG/325MG TAB PO PRN (02:25)
[2020-04-19] MEDS: LEVALBUTEROL 1.25 MG/0.5 ML CONCENTRATE NEB NEB SCH ×2 (02:48→08:04)
[2020-04-19 04:00] VITALS: BP 149/72
[2020-04-19] MEDS: SLF 3 ML SYR IV SCH (06:07)
[2020-04-19 06:28] LABS: BASO % 0.4 % (0.0-1.0); EOS # 0.6 10^3/uL (0.0-0.5); EOS % 6.1 % (0.0-3.0); HEMATOCRIT 36.8 % (42.0-52.0); LYMPH # 1.7 10^3/uL (1.5-5.0); LYMPH % 17.7 % (24.0-44.0); MEAN CORPUSCULAR HEMOGLOBIN 31.4 pg (27.0-33.0); MEAN CORPUSCULAR HGB CONC 32.6 g/dl (32.0-36.5); MEAN CORPUSCULAR VOLUME 96.3 fl (80.0-96.0); MONO # 1.3 10^3/uL (0.0-0.8); MONO % 13.7 % (0.0-5.0); NEUTROPHILS # 5.9 10^3/uL (1.5-8.5); NEUTROPHILS % 61.6 % (36.0-66.0); PLATELET COUNT, AUTOMATED 316 10^3/uL (150-450); RED BLOOD COUNT 3.82 10^6/uL (4.30-6.10); WHITE BLOOD COUNT 9.6 10^3/uL (4.0-10.0)
[2020-04-19 06:49] LABS: BLOOD UREA NITROGEN 27 MG/DL (7-18); CALCIUM LEVEL 8.8 MG/DL (8.8-10.2); CARBON DIOXIDE LEVEL 32 MEQ/L (21-32); CHLORIDE LEVEL 104 MEQ/L (98-107); CREATININE FOR GFR 0.96 MG/DL (0.70-1.30); GLOMERULAR FILTRATION RATE > 60.0 (>49); GLUCOSE, FASTING 104 MG/DL (70-100); POTASSIUM SERUM 4.6 MEQ/L (3.5-5.1); SODIUM LEVEL 138 MEQ/L (136-145)
[2020-04-19] MEDS: HEPARIN SOD (PORCINE) 5000UNITS/ML 1ML VIAL/SYRINGE SC SCH (07:55)
[2020-04-19] MEDS: PANTOPRAZOLE 40MG TAB (PROTONIX) PO SCH (07:55)
[2020-04-19] MEDS: ASPIRIN ENTERIC 325 MG TAB PO SCH (07:55)
[2020-04-19 07:56] VITALS: BP 149/72
[2020-04-19] MEDS: amLODIPine 5 MG TAB PO SCH (07:56)
[2020-04-19] MEDS: MOM 30ML SUSPENSION UDC PO SCH (07:56)
[2020-04-19] MEDS: DOCUSATE SODIUM 100MG CAPSULE PO SCH (07:56)
[2020-04-19 08:00] VITALS: BP 118/71
--- NOTE | 2020-04-19 08:13 | REP ---
INDICATION: s/p left lower lobectomy, lung ca. COMPARISON: Comparison chest x-ray 18 April 2020 and 17 April 2020. TECHNIQUE: Two views.. FINDINGS: The 2 left-sided chest tubes observed on yesterday's radiograph have been removed. The epidural catheter is removed. Monitoring electrodes are seen. Postoperative volume loss again seen in the left hemithorax. Subtle pleural opacity is seen in the left base. A tiny sliver of residual left apical pleural air is again seen unchanged. No new infiltrate. IMPRESSION: Left chest tubes and epidural catheter have been withdrawn. Post thoracotomy partial pneumonectomy changes on the left. No new infiltrate. <Electronically signed by Joey Hatch > 04/19/20 [id number]
[2020-04-19] MEDS ORDERED: PERCOCET PO (09:53)
--- NOTE | 2020-04-19 13:28 | DSES ---
DISCHARGE SUMMARY DATE OF ADMISSION: 04/13/2020 DATE OF DISCHARGE: 04/19/2020 DISCHARGE DIAGNOSES: 1. Postoperative day #6 status post left lower lobectomy. 2. Adenocarcinoma stage 1A3, T1c N0 M0. 3. Chronic obstructive pulmonary disease (COPD). 4. Peripheral vascular disease status post axillobifemoral graft. 5. Coronary artery disease. 6. Hypertension. HOSPITAL COURSE: The patient is a 70-year-old gentleman who has peripheral vascular disease and underwent an axillobifemoral graft in 11/2019 for intermittent claudication. During that admission, a CT scan was undertaken where he was found to have the incidental finding of a left lower lobe spiculated lesion. He was virtually asymptomatic and had he not had the CT scan, he would not have known that something was growing on his chest. His preoperative pulmonary function test showed an FEV of 2.61, which is 72% of predicted and diffusion DLCO 14.8, which is 50% of predicted. He had a 2 cm spiculated mass and preoperatively, he was staged to be clinical stage 1A2. He underwent a fine needle aspiration of the lesion and it was found to be moderately differentiated adenocarcinoma. He was taken to the operating room where he underwent a left lower lobectomy and mediastinal lymphadenectomy. A complete dissection of the AP window was undertaken and there were no nodes seen in the AP window. His parenchymal and hilar nodes were all negative. He had a benign postoperative course with good pain control from the epidural. He had a postoperative air leak, which stopped on postoperative day #4, with his chest tube being removed on postoperative day #5. DISCHARGE MEDICATIONS: He is being discharged home today on his home medications, which include: - Tylenol 325 mg b.i.d. - amlodipine 5 mg q. day - aspirin 325 mg q. day - atorvastatin 40 mg q. h.s. - lisinopril 30 mg q. h.s. - Xarelto 2.5 mg b.i.d. - Percocet 5/325 q. four hours p.r.n. pain. DISCHARGE FOLLOW-UP: I will see him back in one week with a follow-up chest x-ray. DISCHARGE LABORATORY DATA: His discharge white count is 9.6 with hemoglobin and hematocrit of 12.0 and 36.8, platelet count of 316,000. His electrolytes are normal with a BUN and creatinine of 27 and 0.96. His chest x-ray shows his lungs fully expanded to the chest wall with sharp costophrenic angles with obligate volume loss from the lobectomy on the left side. There are no infiltrates.
== END 2020-04-19 11:50 | disposition home or self-care (01) | DRG 165 ==
LOC: M OR 08:06 → M PCU 16:19
PROVIDERS: ADMIT Thoracic Surgery (Cardiothoracic Vascular Surgery); ATTEND Thoracic Surgery (Cardiothoracic Vascular Surgery)
PROC: 0BBJ0ZZ Excision of Left Lower Lung Lobe, Open Approach (ICD-10-PCS; principal; 2020-04-13 09:40)
DX: C34.32 Malignant neoplasm of lower lobe, left bronchus or lung (principal); J44.9 Chronic obstructive pulmonary disease, unspecified; I25.10 Atherosclerotic heart disease of native coronary artery without angina pectoris; I10 Essential (primary) hypertension; I73.9 Peripheral vascular disease, unspecified

== ENCOUNTER → 2020-04-30 | Outpatient (CLI) | payer MEDICARE, BC, OTHER ==
[~2020-04-30] MED LIST changes: -LIDOCAINE 1% MDV 20ML VIAL SQ PRN; -LISI-538 PO; +LISI20TA33 PO; -MUPIROCIN 2% OINT 22 GM TUBE TOP ONE; +PERCOCET PO; -ceFAZolin SOD 2 GM in IV 1 EA IV ONE
--- NOTE | 2020-04-30 11:09 | REPPI ---
INDICATION: MALIGNANT NEOPLASM OF LOWER LOBE, LEFT BRONCHUS, EMPHYSEMA COMPARISON: 04/19/2020 TECHNIQUE: PA and lateral. FINDINGS: Left lower lobe/retrocardiac opacity remains relatively stable. New left pleural effusion with possible hydropneumothorax component now suspected. Aerated lung barrett demonstrate chronic changes. IMPRESSION: Left-sided pleuroparenchymal changes as noted above. <Electronically signed by Oziel Williamson > 04/30/20 [id number]
== END ==
LOC: M PLALAB 10:34
PROVIDERS: ATTEND Thoracic Surgery (Cardiothoracic Vascular Surgery)
DX: C34.32 Malignant neoplasm of lower lobe, left bronchus or lung (principal); J43.9 Emphysema, unspecified

== ENCOUNTER → 2020-05-20 | Outpatient (CLI) | payer MEDICARE, BC, OTHER ==
--- NOTE | 2020-05-20 10:19 | REP ---
INDICATION: MALIGNANT NEOPLASM OF LOWER LOBE COMPARISON: 04/30/2020 TECHNIQUE: PA and lateral. FINDINGS: Postsurgical changes and pleuroparenchymal changes involving the left hemithorax are similar to prior examination. The previously noted pneumothorax has resolved. The bilateral aerated lung barrett demonstrate stable chronic changes and no obvious new acute process is appreciated. Mediastinum and cardiac silhouette are stable. Skeletal structures are stable. IMPRESSION: Chronic left-sided postsurgical and pleuroparenchymal changes similar to prior examination. Previously noted left pneumothorax resolved. <Electronically signed by Oziel Williamson > 05/20/20 [id number]
== END ==
LOC: M ADAMS 09:55
PROVIDERS: ATTEND Thoracic Surgery (Cardiothoracic Vascular Surgery)
DX: C34.32 Malignant neoplasm of lower lobe, left bronchus or lung (principal); J43.9 Emphysema, unspecified

== ENCOUNTER → 2020-12-18 | Outpatient (CLI) | payer MEDICARE, BC, OTHER ==
--- NOTE | 2020-12-18 11:11 | REP ---
INDICATION: ENPHYZEMA COMPARISON: 01/01/2020 from an outside institution TECHNIQUE: Standard helical technique without intravenous contrast administration. This causes exam limitations. FINDINGS: Limited evaluation of the mediastinum and pulmonary [place] shows no evidence of a mass or adenopathy there are no pleural or pericardial effusions. The imaged upper abdomen shows a partially imaged at least 5.4 cm sized low-density structure arising from the inter polar region of the left kidney in the imaged portion of which has water density Hounsfield unit readings. Renal calcifications are seen bilaterally consistent with renovascular calcifications. Bone window technique throughout the examination shows a grade 2 T6 compression fracture which has developed since the last exam. Evaluation of the lung barrett shows a spiculated right upper lobe nodule which measures approximately 1.5 cm excluding all spiculations. This previously measured 1 cm. The patient is status post left lower lobectomy. Postoperative changes are noted. There is biapical pleuroparenchymal scarring which appears unchanged. No new abnormal nodules, masses, or opacities have developed. IMPRESSION: 1. The spiculated appearing right upper lobe nodule seen on the prior exam has increased in size as described above. PET-CT is recommended. 2. Status post left lower lobectomy. 3. Biapical pleuroparenchymal scarring and emphysematous changes which appear stable. 4. Left kidney as described above. Since it is incompletely imaged renal ultrasonography is recommended for further evaluation. 5. Newly developed grade 2 T6 compression fracture the age of which cannot be determined by this exam. 6. Other findings as described above. <Electronically signed by Parveen Wyatt > 12/18/20 [id number]
== END ==
LOC: M PLAIMG 10:05
PROVIDERS: ATTEND Internal Medicine Pulmonary Disease
DX: J43.9 Emphysema, unspecified (principal)

== ENCOUNTER → 2021-01-25 | Outpatient (CLI) | payer MEDICARE, BC, OTHER ==
--- NOTE | 2021-01-26 11:54 | REP ---
INDICATION: RESTAGING HISTORY OF LUNG CANCER R91.8. COMPARISON: None. TECHNIQUE: 9.44 mCi FDG-18 FINDINGS: The area in question in the right upper lobe is not hypermetabolic. This most likely is a granuloma. No abnormal area of uptake is appreciated elsewhere. IMPRESSION: The area in question in the right upper lobe is not hypermetabolic and most likely represents a granuloma. <Electronically signed by Zev Reyes > 01/26/21 [id number]
== END ==
LOC: M PLARAD 07:48
PROVIDERS: ATTEND Internal Medicine Pulmonary Disease
DX: R91.8 Other nonspecific abnormal finding of lung field (principal)
CPT/HCPCS: 78815; A9552

== ENCOUNTER 2021-06-04 08:13 | Inpatient (IN) | payer MEDICARE, BC, OTHER ==
[~2021-06-04] VITALS: Ht 182.9 cm; Wt 72.7 kg
[~2021-06-04 08:13] MED LIST changes: -D31000TA2 PO; +VITA100093 PO
[2021-06-04] MEDS: CALCITONIN NASAL SPRAY 3.7 ML BTL SCH (09:00)
[2021-06-04] MEDS: MORPHINE 4 MG/ML 1ML VIAL/SYRINGE (J2270) IV PRN ×4 (10:02→19:26)
[2021-06-04 10:15] LABS: BASO % 0.2 % (0.0-1.0); EOS % 0.3 % (0.0-3.0); HEMATOCRIT 37.5 % (42.0-52.0); HEMOGLOBIN 12.9 g/dl (13.5-17.5); LYMPH # 0.7 10^3/uL (1.5-5.0); LYMPH % 5.7 % (24.0-44.0); MEAN CORPUSCULAR HEMOGLOBIN 32.6 pg (27.0-33.0); MEAN CORPUSCULAR HGB CONC 34.4 g/dl (32.0-36.5); MEAN CORPUSCULAR VOLUME 94.7 fl (80.0-96.0); MONO # 0.9 10^3/uL (0.0-0.8); MONO % 7.4 % (2.0-8.0); NEUTROPHILS # 10.6 10^3/uL (1.5-8.5); NEUTROPHILS % 85.8 % (36.0-66.0); PLATELET COUNT, AUTOMATED 262 10^3/uL (150-450); RED BLOOD COUNT 3.96 10^6/uL (4.30-6.10); WHITE BLOOD COUNT 12.4 10^3/uL (4.0-10.0)
[2021-06-04 10:49] LABS: BLOOD UREA NITROGEN 11 MG/DL (7-18); CALCIUM LEVEL 8.7 MG/DL (8.8-10.2); CARBON DIOXIDE LEVEL 26 MEQ/L (21-32); CHLORIDE LEVEL 96 MEQ/L (98-107); CREATININE FOR GFR 0.76 MG/DL (0.70-1.30); GLOMERULAR FILTRATION RATE > 60.0 (>49); GLUCOSE, FASTING 103 MG/DL (70-100); POTASSIUM SERUM 4.9 MEQ/L (3.5-5.1); SODIUM LEVEL 129 MEQ/L (136-145)
[2021-06-04] MEDS ORDERED: PERCOCET 5MG/325MG TAB PO PRN (16:20)
[2021-06-04] MEDS ORDERED: ACETAMINOPHEN TAB 650MG DOSE (2X325MG) PO PRN (16:20)
[2021-06-04] MEDS ORDERED: ONDANSETRON 4MG/2ML VIAL IV PRN (16:20)
[2021-06-04 16:25] LABS: RSV AMPLIFICATION NEGATIVE (NEGATIVE)
[2021-06-04] MEDS ORDERED: LORazepam 2 MG TAB PO PRN (16:35)
[2021-06-04] MEDS ORDERED: HOME MED LIST COMPLETE! XX SCH (17:15)
[2021-06-04] MEDS: RIVAROXABAN 10 MG TAB (XARELTO) PO SCH (18:00)
[2021-06-04] MEDS: THIAMINE 100 MG TAB PO SCH (19:25)
[2021-06-04] MEDS: MULTIVITAMINS/MINERALS THERAP 1 TAB PO SCH (19:26)
[2021-06-04] MEDS: FOLIC ACID 1 MG TAB PO SCH (19:26)
[2021-06-04] MEDS: ATORVASTATIN 20 MG TAB PO SCH (21:16)
[2021-06-04] MEDS ORDERED: PILL CUTTER 1 EACH XX PRN (21:35)
[2021-06-04 22:30] VITALS: BP 166/88
[2021-06-05] MEDS: PERCOCET 5MG/325MG TAB PO PRN ×4 (00:20→18:52)
[2021-06-05 05:12] VITALS: BP 159/90
[2021-06-05 06:04] VITALS: BP 159/90
[2021-06-05 06:08] LABS: HEMATOCRIT 38.3 % (42.0-52.0); HEMOGLOBIN 12.8 g/dl (13.5-17.5); MEAN CORPUSCULAR HEMOGLOBIN 32.4 pg (27.0-33.0); MEAN CORPUSCULAR HGB CONC 33.4 g/dl (32.0-36.5); PLATELET COUNT, AUTOMATED 270 10^3/uL (150-450); RED BLOOD COUNT 3.95 10^6/uL (4.30-6.10); WHITE BLOOD COUNT 10.1 10^3/uL (4.0-10.0)
[2021-06-05 06:29] LABS: BLOOD UREA NITROGEN 12 MG/DL (7-18); CALCIUM LEVEL 8.8 MG/DL (8.8-10.2); CARBON DIOXIDE LEVEL 28 MEQ/L (21-32); CHLORIDE LEVEL 99 MEQ/L (98-107); CREATININE FOR GFR 0.85 MG/DL (0.70-1.30); GLOMERULAR FILTRATION RATE > 60.0 (>49); GLUCOSE, FASTING 103 MG/DL (70-100); MAGNESIUM LEVEL 2.3 MG/DL (1.8-2.4); POTASSIUM SERUM 4.7 MEQ/L (3.5-5.1); SODIUM LEVEL 134 MEQ/L (136-145)
[2021-06-05] MEDS: FOLIC ACID 1 MG TAB PO SCH (08:40)
[2021-06-05] MEDS: amLODIPine 5 MG TAB PO SCH (08:43)
[2021-06-05] MEDS: MULTIVITAMINS/MINERALS THERAP 1 TAB PO SCH (08:44)
[2021-06-05] MEDS: THIAMINE 100 MG TAB PO SCH (08:44)
[2021-06-05] MEDS: ASPIRIN ENTERIC 325 MG TAB PO SCH (08:44)
[2021-06-05 09:15] VITALS: BP 142/87
[2021-06-05] MEDS: RIVAROXABAN 10 MG TAB (XARELTO) PO SCH ×2 (10:08→17:39)
[2021-06-05] MEDS: CALCITONIN NASAL SPRAY 3.7 ML BTL SCH (10:09)
[2021-06-05 14:00] VITALS: BP 125/77
[2021-06-05 14:26] VITALS: BP 125/77
[2021-06-05] MEDS: ATORVASTATIN 20 MG TAB PO SCH (20:28)
[2021-06-05 22:00] VITALS: BP 129/78
[2021-06-06] MEDS: PERCOCET 5MG/325MG TAB PO PRN ×4 (02:38→21:17)
[2021-06-06 06:00] VITALS: BP 134/81
[2021-06-06] MEDS: ASPIRIN ENTERIC 325 MG TAB PO SCH (08:21)
[2021-06-06] MEDS: amLODIPine 5 MG TAB PO SCH (08:23)
[2021-06-06] MEDS: RIVAROXABAN 10 MG TAB (XARELTO) PO SCH ×2 (08:23→17:45)
[2021-06-06] MEDS: CALCITONIN NASAL SPRAY 3.7 ML BTL SCH (08:23)
[2021-06-06 14:00] VITALS: BP 120/76
[2021-06-06] MEDS: ATORVASTATIN 20 MG TAB PO SCH (20:06)
[2021-06-06 22:00] VITALS: BP 113/81
[2021-06-07] MEDS: PERCOCET 5MG/325MG TAB PO PRN (03:25)
[2021-06-07 06:00] VITALS: BP 127/78
[2021-06-07 06:24] LABS: HEMATOCRIT 37.5 % (42.0-52.0); HEMOGLOBIN 12.5 g/dl (13.5-17.5); MEAN CORPUSCULAR HEMOGLOBIN 32.3 pg (27.0-33.0); MEAN CORPUSCULAR HGB CONC 33.3 g/dl (32.0-36.5); MEAN CORPUSCULAR VOLUME 96.9 fl (80.0-96.0); PLATELET COUNT, AUTOMATED 280 10^3/uL (150-450); RED BLOOD COUNT 3.87 10^6/uL (4.30-6.10); WHITE BLOOD COUNT 7.9 10^3/uL (4.0-10.0)
[2021-06-07 06:43] LABS: BLOOD UREA NITROGEN 24 MG/DL (7-18); CALCIUM LEVEL 8.6 MG/DL (8.8-10.2); CARBON DIOXIDE LEVEL 30 MEQ/L (21-32); CHLORIDE LEVEL 100 MEQ/L (98-107); CREATININE FOR GFR 0.83 MG/DL (0.70-1.30); GLOMERULAR FILTRATION RATE > 60.0 (>49); GLUCOSE, FASTING 99 MG/DL (70-100); MAGNESIUM LEVEL 2.5 MG/DL (1.8-2.4); POTASSIUM SERUM 4.5 MEQ/L (3.5-5.1); SODIUM LEVEL 132 MEQ/L (136-145)
[2021-06-07] MEDS: ASPIRIN ENTERIC 325 MG TAB PO SCH (09:12)
[2021-06-07] MEDS: RIVAROXABAN 10 MG TAB (XARELTO) PO SCH (09:12)
[2021-06-07 09:15] VITALS: BP 123/82
[2021-06-07] MEDS: amLODIPine 5 MG TAB PO SCH (09:15)
[2021-06-07] MEDS: CALCITONIN NASAL SPRAY 3.7 ML BTL SCH (09:15)
[2021-06-07] MEDS ORDERED: PERCOCET PO ×2 (10:30→11:33)
== END 2021-06-07 12:05 | disposition home or self-care (01) | DRG 552 ==
LOC: M ED 08:13 → EDBD 08:13 → M ED INP 16:17 → M MS5PR 21:10
PROVIDERS: ADMIT Family Medicine; ATTEND Family Medicine
DX: S32.030A Wedge compression fracture of third lumbar vertebra, initial encounter for closed fracture (principal); E87.1 Hypo-osmolality and hyponatremia; I10 Essential (primary) hypertension; I73.9 Peripheral vascular disease, unspecified; D64.9 Anemia, unspecified; E78.5 Hyperlipidemia, unspecified; X50.0XXA Overexertion from strenuous movement or load, initial encounter; Y92.009 Unspecified place in unspecified non-institutional (private) residence as the place of occurrence of the external cause; D72.829 Elevated white blood cell count, unspecified; F10.10 Alcohol abuse, uncomplicated; Z79.899 Other long term (current) drug therapy; Z79.82 Long term (current) use of aspirin

== ENCOUNTER → 2021-06-15 | Outpatient (CLI) | payer MEDICARE, BC, OTHER | LOC: M SOG 10:53 | PROVIDERS: ATTEND Orthopaedic Surgery | DX: S32.030A Wedge compression fracture of third lumbar vertebra, initial encounter for closed fracture (principal); X58.XXXA Exposure to other specified factors, initial encounter; Y92.89 Other specified places as the place of occurrence of the external cause; Y93.9 Activity, unspecified; Y99.9 Unspecified external cause status ==

== ENCOUNTER → 2021-06-15 | Outpatient (CLI) | payer MEDICARE, BC, OTHER ==
[2021-06-15 13:22] LABS: TOTAL PROTEIN 7.5 GM/DL (6.4-8.2)
[2021-06-18 13:06] LABS: ALBUMIN 4.53 GM/DL (3.29-5.55); ALBUMIN % 60.4 % (55.8-66.1); ALPHA-1-GLOBULIN % 4.6 % (2.9-4.9); ALPHA-1-GLOBULINS 0.35 GM/DL (0.17-0.41); ALPHA-2-GLOBULINS 0.81 GM/DL (0.42-0.99); ALPHA-2-GLOBULINS % 10.8 % (7.1-11.8); BETA-1-GLOBULINS 0.39 GM/DL (0.28-0.60); BETA-1-GLOBULINS % 5.2 % (4.7-7.2); BETA-2-GLOBULINS 0.35 GM/DL (0.19-0.55); BETA-2-GLOBULINS % 4.6 % (3.2-6.5); GAMMA GLOBULIN % 14.4 % (11.1-18.8); GAMMA GLOBULINS 1.08 GM/DL (0.65-1.58)
== END ==
LOC: M LAB 12:05
PROVIDERS: ATTEND Orthopaedic Surgery
DX: S32.030A Wedge compression fracture of third lumbar vertebra, initial encounter for closed fracture (principal); X58.XXXA Exposure to other specified factors, initial encounter; Y92.89 Other specified places as the place of occurrence of the external cause; Y93.9 Activity, unspecified; Y99.9 Unspecified external cause status; Z79.899 Other long term (current) drug therapy

== ENCOUNTER → 2021-06-22 | Outpatient (CLI) | payer MEDICARE, BC, OTHER | LOC: M SOG 08:19 | PROVIDERS: ATTEND Orthopaedic Surgery | DX: M54.50 Low back pain, unspecified (principal) ==

== ENCOUNTER → 2021-06-24 | Outpatient (CLI) | payer MEDICARE, BC, OTHER | LOC: M WHC 07:52 | PROVIDERS: ATTEND Internal Medicine | DX: Z13.820 Encounter for screening for osteoporosis (principal); M85.88 Other specified disorders of bone density and structure, other site; S32.030A Wedge compression fracture of third lumbar vertebra, initial encounter for closed fracture; S22.050A Wedge compression fracture of T5-T6 vertebra, initial encounter for closed fracture; X58.XXXA Exposure to other specified factors, initial encounter; Y92.9 Unspecified place or not applicable ==

== ENCOUNTER → 2021-07-06 | Outpatient (CLI) | payer MEDICARE, BC, OTHER | LOC: M SOG 07:53 | PROVIDERS: ATTEND Orthopaedic Surgery | DX: S32.030A Wedge compression fracture of third lumbar vertebra, initial encounter for closed fracture (principal) ==

== ENCOUNTER 2021-07-21 23:51 | Inpatient (IN) | payer MEDICARE, BC, OTHER ==
[~2021-07-21] VITALS: Ht 182.9 cm; Wt 66.0 kg
[2021-07-22] VITALS (8 sets, daily range): BP systolic 126–166; BP diastolic 72–85
[2021-07-22] MEDS ORDERED: methylPREDNISolone 125MG 2ML VIAL IV ONE (01:50)
[2021-07-22] MEDS ORDERED: METHOCARBAMOL 1,000 MG/10 ML VIAL (J2800) IV ONE (01:50)
[2021-07-22] MEDS ORDERED: ONDANSETRON 4MG/2ML VIAL IV ONE (02:15)
[2021-07-22] MEDS ORDERED: fentaNYL 100 MCG/2 ML INJECTION As Ordered ONE (02:16)
[2021-07-22] MEDS: MORPHINE 4 MG/ML 1ML VIAL/SYRINGE IV PRN ×2 (02:46→03:55)
[2021-07-22] MEDS: HYDROMORPHONE HCL 0.5 MG/ 0.5 ML SYRINGE (J1170 PER 1) IV PRN ×2 (04:20→04:54)
[2021-07-22 04:58] LABS: BASO % 0.1 % (0.0-1.0); HEMATOCRIT 38.7 % (42.0-52.0); LYMPH # 0.4 10^3/uL (1.5-5.0); LYMPH % 3.7 % (24.0-44.0); MEAN CORPUSCULAR HEMOGLOBIN 32.2 pg (27.0-33.0); MEAN CORPUSCULAR HGB CONC 33.6 g/dl (32.0-36.5); MEAN CORPUSCULAR VOLUME 95.8 fl (80.0-96.0); MONO # 0.3 10^3/uL (0.0-0.8); MONO % 3.1 % (2.0-8.0); NEUTROPHILS # 9.9 10^3/uL (1.5-8.5); NEUTROPHILS % 92.6 % (36.0-66.0); PLATELET COUNT, AUTOMATED 275 10^3/uL (150-450); RED BLOOD COUNT 4.04 10^6/uL (4.30-6.10); WHITE BLOOD COUNT 10.6 10^3/uL (4.0-10.0)
[2021-07-22] MEDS ORDERED: IPRATROPIUM 0.5MG/ALBUTEROL 2.5MG INH SOL UD 3ML (DUONEB) NEB PRN (05:00)
[2021-07-22] MEDS ORDERED: LORazepam 2 MG TAB PO PRN (05:00)
[2021-07-22] MEDS ORDERED: MORPHINE 2 MG/ML 1ML VIAL IV PRN (05:00)
[2021-07-22] MEDS ORDERED: ACETAMINOPHEN TAB 650MG DOSE (2X325MG) PO PRN (05:00)
[2021-07-22 05:09] LABS: INR 0.98; PROTHROMBIN TIME 13.4 SECONDS (12.7-14.5)
[2021-07-22 05:10] LABS: PARTIAL THROMBOPLASTIN TIME 32.7 SECONDS (25.9-37.0)
[2021-07-22 05:22] LABS: BLOOD UREA NITROGEN 12 MG/DL (7-18); CALCIUM LEVEL 9.6 MG/DL (8.8-10.2); CARBON DIOXIDE LEVEL 25 MEQ/L (21-32); CHLORIDE LEVEL 99 MEQ/L (98-107); CREATININE FOR GFR 0.65 MG/DL (0.70-1.30); GLOMERULAR FILTRATION RATE > 60.0 (>49); GLUCOSE, FASTING 121 MG/DL (70-100); POTASSIUM SERUM 5.2 MEQ/L (3.5-5.1); SODIUM LEVEL 132 MEQ/L (136-145)
[2021-07-22 05:38] LABS: RSV AMPLIFICATION NEGATIVE (NEGATIVE)
[2021-07-22] MEDS ORDERED: NS 1,000 ML IV SCH (06:05)
[2021-07-22] MEDS ORDERED: OXYC1TAB23 PO (06:12)
[2021-07-22] MEDS ORDERED: VITA200021 PO (06:12)
[2021-07-22] MEDS ORDERED: HOME MED LIST COMPLETE! XX SCH (06:15)
[2021-07-22] MEDS: LIDOCAINE 5% (LIDODERM) PATCH TD SCH (08:44)
[2021-07-22 08:47] LABS: ETHYL ALCOHOL (ETHANOL) < 0.003 % (0.000-0.010)
[2021-07-22] MEDS: MULTIVITAMINS/MINERALS THERAP 1 TAB PO SCH ×2 (09:00→12:50)
[2021-07-22 11:22] LABS: BLOOD UREA NITROGEN 11 MG/DL (7-18); CALCIUM LEVEL 9.9 MG/DL (8.8-10.2); CARBON DIOXIDE LEVEL 24 MEQ/L (21-32); CHLORIDE LEVEL 98 MEQ/L (98-107); CREATININE FOR GFR 0.67 MG/DL (0.70-1.30); GLOMERULAR FILTRATION RATE > 60.0 (>49); GLUCOSE, FASTING 133 MG/DL (70-100); POTASSIUM SERUM 5.2 MEQ/L (3.5-5.1); SODIUM LEVEL 129 MEQ/L (136-145)
[2021-07-22] MEDS: THIAMINE 100 MG TAB PO SCH ×2 (12:50→22:06)
[2021-07-22] MEDS: FOLIC ACID 1 MG TAB PO SCH (12:51)
[2021-07-22] MEDS: amLODIPine 5 MG TAB PO SCH (12:51)
[2021-07-22] MEDS: PERCOCET 5MG/325MG TAB PO PRN ×2 (12:54→19:38)
[2021-07-22] MEDS ORDERED: SOD POLYSTYRENE SULFONATE SUSP 15 GM/60 ML UD PO ONE (13:00)
[2021-07-22] MEDS ORDERED: PILL CUTTER 1 EACH XX PRN (18:30)
[2021-07-22] MEDS ORDERED: **NOTE PATIENT COMMENT** MISC XX SCH (19:00)
[2021-07-22] MEDS ORDERED: ATORVASTATIN 20 MG TAB PO SCH (21:00)
[2021-07-22] MEDS: RIVAROXABAN 10 MG TAB (XARELTO) PO SCH (22:06)
[2021-07-22] MEDS: ASPIRIN ENTERIC 325 MG TAB PO SCH (22:06)
[2021-07-23 05:49] VITALS: BP 134/72
[2021-07-23 06:00] VITALS: BP 134/72
[2021-07-23 06:23] LABS: BASO % 0.2 % (0.0-1.0); EOS % 0.5 % (0.0-3.0); HEMATOCRIT 34.8 % (42.0-52.0); LYMPH # 1.6 10^3/uL (1.5-5.0); LYMPH % 19.3 % (24.0-44.0); MEAN CORPUSCULAR HEMOGLOBIN 32.3 pg (27.0-33.0); MEAN CORPUSCULAR HGB CONC 34.5 g/dl (32.0-36.5); MEAN CORPUSCULAR VOLUME 93.5 fl (80.0-96.0); MONO # 1.1 10^3/uL (0.0-0.8); NEUTROPHILS # 5.6 10^3/uL (1.5-8.5); NEUTROPHILS % 66.5 % (36.0-66.0); PLATELET COUNT, AUTOMATED 270 10^3/uL (150-450); RED BLOOD COUNT 3.72 10^6/uL (4.30-6.10); WHITE BLOOD COUNT 8.4 10^3/uL (4.0-10.0)
[2021-07-23] MEDS: PERCOCET 5MG/325MG TAB PO PRN ×2 (06:49→13:54)
[2021-07-23 06:58] LABS: ALBUMIN 3.1 GM/DL (3.2-5.2); ALT/SGPT 20 U/L (12-78); BILIRUBIN,TOTAL 0.6 MG/DL (0.2-1.0); BLOOD UREA NITROGEN 14 MG/DL (7-18); CALCIUM LEVEL 9.2 MG/DL (8.8-10.2); CARBON DIOXIDE LEVEL 26 MEQ/L (21-32); CHLORIDE LEVEL 100 MEQ/L (98-107); CREATININE FOR GFR 0.67 MG/DL (0.70-1.30); GLOMERULAR FILTRATION RATE > 60.0 (>49); GLUCOSE, FASTING 93 MG/DL (70-100); MAGNESIUM LEVEL 2.1 MG/DL (1.8-2.4); POTASSIUM SERUM 3.9 MEQ/L (3.5-5.1); SODIUM LEVEL 135 MEQ/L (136-145)
[2021-07-23] MEDS ORDERED: VITAMIN D 1,000 INTERNATIONAL UNITS TABLET PO SCH (09:00)
[2021-07-23] MEDS: MULTIVITAMINS/MINERALS THERAP 1 TAB PO SCH ×2 (09:00→09:20)
[2021-07-23] MEDS: LIDOCAINE 5% (LIDODERM) PATCH TD SCH (09:20)
[2021-07-23] MEDS: THIAMINE 100 MG TAB PO SCH (09:20)
[2021-07-23] MEDS: RIVAROXABAN 10 MG TAB (XARELTO) PO SCH (09:20)
[2021-07-23] MEDS: ASPIRIN ENTERIC 325 MG TAB PO SCH (09:20)
[2021-07-23] MEDS: FOLIC ACID 1 MG TAB PO SCH (09:20)
[2021-07-23] MEDS: amLODIPine 5 MG TAB PO SCH (09:20)
[2021-07-23] MEDS ORDERED: FOLI1TAB11 PO (11:29)
[2021-07-23] MEDS ORDERED: PERCOCET PO (11:29)
[2021-07-23] MEDS ORDERED: THIA100TA PO (11:29)
== END 2021-07-23 14:56 | disposition home or self-care (01) | DRG 543 ==
LOC: EDBD 23:51 → M ED 23:51 → M ED INP 07-22 05:00 → ENRESERV 07-22 06:25 → M MSPAV 07-22 06:50
PROVIDERS: ADMIT Family Medicine; ATTEND Internal Medicine
DX: M48.54XA Collapsed vertebra, not elsewhere classified, thoracic region, initial encounter for fracture (principal); E87.1 Hypo-osmolality and hyponatremia; M48.56XA Collapsed vertebra, not elsewhere classified, lumbar region, initial encounter for fracture; M54.9 Dorsalgia, unspecified; I73.9 Peripheral vascular disease, unspecified; I10 Essential (primary) hypertension; D64.9 Anemia, unspecified; E78.5 Hyperlipidemia, unspecified; F10.10 Alcohol abuse, uncomplicated; E87.5 Hyperkalemia; Z79.82 Long term (current) use of aspirin; Z79.899 Other long term (current) drug therapy; N28.1 Cyst of kidney, acquired

== ENCOUNTER → 2021-08-04 | Outpatient (CLI) | payer MEDICARE, BC, OTHER ==
[~2021-08-04] MED LIST changes: +VITA200021 PO
== END ==
LOC: M PLAIMG 07:38
PROVIDERS: ATTEND Internal Medicine Pulmonary Disease
DX: Z85.118 Personal history of other malignant neoplasm of bronchus and lung (principal)

== ENCOUNTER → 2021-08-06 | Outpatient (CLI) | payer MEDICARE, BC, OTHER | LOC: M SOG 08:52 | PROVIDERS: ATTEND Orthopaedic Surgery | DX: S22.080A Wedge compression fracture of T11-T12 vertebra, initial encounter for closed fracture (principal); S32.030A Wedge compression fracture of third lumbar vertebra, initial encounter for closed fracture; X58.XXXA Exposure to other specified factors, initial encounter; Y92.9 Unspecified place or not applicable; Y99.9 Unspecified external cause status ==

== ENCOUNTER → 2021-08-10 | Outpatient (POV) | payer MEDICARE, BC, OTHER ==
[~2021-08-10] VITALS: Ht 182.9 cm; Wt 68.2 kg
[2021-08-10 12:55] VITALS: BP 139/89
== END ==
LOC: M IRPOV 12:44
PROVIDERS: ATTEND Radiology Diagnostic Radiology
DX: S32.030A Wedge compression fracture of third lumbar vertebra, initial encounter for closed fracture (principal); S22.080A Wedge compression fracture of T11-T12 vertebra, initial encounter for closed fracture; Z79.01 Long term (current) use of anticoagulants; Z79.82 Long term (current) use of aspirin; Z79.899 Other long term (current) drug therapy; Z85.118 Personal history of other malignant neoplasm of bronchus and lung; Z95.828 Presence of other vascular implants and grafts

== ENCOUNTER → 2021-08-19 | Outpatient (CLI) | payer MEDICARE, BC, OTHER ==
[~2021-08-19] MED LIST changes: +ALEN70SO2 PO; +HYDR-3713 PO; +LIDOCAINE 1% MDV 20ML VIAL As Ordered ONE; +MIDAZOLAM INJ 2MG/2ML VIAL (J2250 PER 1MG) As Ordered ONE; +NS 1,000 ML IV SCH; +ceFAZolin 2 GM/D5W 50 ML IV BAG (J0690 PER 500MG) As Ordered ONE; +ceFAZolin SOD 2 GM in IV 1 EA IV ONE; +diphenhydrAMINE 50MG/ML VIAL (J1200) As Ordered ONE; +fentaNYL 100 MCG/2 ML INJECTION As Ordered ONE
[2021-08-19 08:40] VITALS: BP 176/88
== END ==
LOC: M IRPRO 06:58
PROVIDERS: ATTEND Radiology Diagnostic Radiology
DX: S22.089A Unspecified fracture of T11-T12 vertebra, initial encounter for closed fracture (principal); M25.78 Osteophyte, vertebrae
CPT/HCPCS: 93005; J0690; J2250; J3010

== ENCOUNTER → 2021-08-27 | Outpatient (CLI) | payer MEDICARE, BC, OTHER ==
[~2021-08-27] MED LIST changes: -LIDOCAINE 1% MDV 20ML VIAL As Ordered ONE; -MIDAZOLAM INJ 2MG/2ML VIAL (J2250 PER 1MG) As Ordered ONE; -NS 1,000 ML IV SCH; -ceFAZolin 2 GM/D5W 50 ML IV BAG (J0690 PER 500MG) As Ordered ONE; -ceFAZolin SOD 2 GM in IV 1 EA IV ONE; -diphenhydrAMINE 50MG/ML VIAL (J1200) As Ordered ONE; -fentaNYL 100 MCG/2 ML INJECTION As Ordered ONE
== END ==
LOC: M SOG 09:25
PROVIDERS: ATTEND Orthopaedic Surgery
DX: S22.080A Wedge compression fracture of T11-T12 vertebra, initial encounter for closed fracture (principal)

== ENCOUNTER → 2022-02-07 | Outpatient (CLI) | payer MEDICARE, BC, OTHER | LOC: M PLAIMG 14:10 | PROVIDERS: ATTEND Internal Medicine Pulmonary Disease | DX: Z85.118 Personal history of other malignant neoplasm of bronchus and lung (principal) ==

== ENCOUNTER → 2022-04-18 | Outpatient (CLI) | payer MEDICARE, BC, OTHER | LOC: M PLARAD 08:50 | PROVIDERS: ATTEND Internal Medicine Pulmonary Disease | DX: R91.1 Solitary pulmonary nodule (principal) | CPT/HCPCS: 78815; A9552 ==

== ENCOUNTER → 2022-06-16 | Outpatient (CLI) | payer MEDICARE, BC, OTHER ==
[~2022-06-16] MED LIST changes: +AMOX400S2 PO; +CALC500C16 PO
== END ==
LOC: M LABSMTC 11:18
PROVIDERS: ATTEND Anesthesiology
DX: Z01.818 Encounter for other preprocedural examination (principal); Z11.52 Encounter for screening for COVID-19

== ENCOUNTER 2022-06-21 06:18 | Day surgery (SDC) | payer MEDICARE, BC, OTHER ==
[~2022-06-21] VITALS: Ht 175.3 cm; Wt 74.4 kg
[~2022-06-21 06:18] MED LIST changes: +CYCLOPENTOLATE 1% OPHTH SOLN 2ML BTL OS SCH; +OFLOXACIN 0.3 % (OCUFLOX) OPTH SOL 5ML OS SCH; +PHENYLEPHRINE 2.5% OPHTH SOL 2ML OS SCH; +PROPARACAINE 0.5% OPHTH SOL 15ML OS ONE; +TROPICAMIDE 1% OPHTH SOLN 15ML OS SCH
[2022-06-21] MEDS ORDERED: LIDOCAINE 1% SDV 5ML VIAL As Ordered ONE (06:33)
[2022-06-21] MEDS ORDERED: BSS IRR 500ML/OMIDRIA 4ML IRR BAG (OR ONLY) As Ordered ONE (06:34)
[2022-06-21] MEDS ORDERED: CEFUROXIME 1MG/0.1ML INTRACAMERAL INJ As Ordered ONE (06:34)
[2022-06-21] MEDS ORDERED: fentaNYL 100 MCG/2 ML INJECTION As Ordered ONE (07:28)
[2022-06-21] MEDS ORDERED: MIDAZOLAM INJ 2MG/2ML VIAL As Ordered ONE (07:28)
[2022-06-21 08:33] VITALS: BP 158/75
== END 2022-06-21 08:50 | disposition home or self-care (01) ==
LOC: M SDC 06:18
PROVIDERS: ATTEND Ophthalmology
DX: H25.12 Age-related nuclear cataract, left eye (principal); I10 Essential (primary) hypertension; E78.5 Hyperlipidemia, unspecified; Z85.118 Personal history of other malignant neoplasm of bronchus and lung; Z79.01 Long term (current) use of anticoagulants; Z79.899 Other long term (current) drug therapy
CPT/HCPCS: 66984; J0697; J1097; J2250; J3010; V2632

== ENCOUNTER → 2022-08-03 | Outpatient (CLI) | payer MEDICARE, BC, OTHER ==
[~2022-08-03] MED LIST changes: -CYCLOPENTOLATE 1% OPHTH SOLN 2ML BTL OS SCH; -OFLOXACIN 0.3 % (OCUFLOX) OPTH SOL 5ML OS SCH; -PHENYLEPHRINE 2.5% OPHTH SOL 2ML OS SCH; -PROPARACAINE 0.5% OPHTH SOL 15ML OS ONE; -TROPICAMIDE 1% OPHTH SOLN 15ML OS SCH
== END ==
LOC: M PLAIMG 11:15
PROVIDERS: ATTEND Internal Medicine Pulmonary Disease
DX: Z85.118 Personal history of other malignant neoplasm of bronchus and lung (principal)

== ENCOUNTER → 2023-03-15 | Outpatient (CLI) | payer MEDICARE, BC, OTHER | LOC: M PLAIMG 08:18 | PROVIDERS: ATTEND Internal Medicine Pulmonary Disease | DX: R91.1 Solitary pulmonary nodule (principal); Z90.2 Acquired absence of lung [part of] ==

== ENCOUNTER → 2023-07-13 | Outpatient (CLI) | payer MEDICARE, BC | LOC: M WHC 07:44 | PROVIDERS: ATTEND Internal Medicine | DX: Z13.820 Encounter for screening for osteoporosis (principal); M85.851 Other specified disorders of bone density and structure, right thigh ==

== ENCOUNTER 2023-10-06 23:18 | Emergency (ER) | payer MEDICARE, BC ==
[~2023-10-06] VITALS: Ht 182.9 cm; Wt 75.0 kg
[2023-10-06 23:27] VITALS: TEMP 97.7
[2023-10-07] MEDS ORDERED: METHOCARBAMOL 1,000 MG/10 ML VIAL IM ONE (01:35)
[2023-10-07] MEDS: methylPREDNISolone 125MG 2ML VIAL IV ONE (01:45)
[2023-10-07] MEDS: METHOCARBAMOL 1,000 MG/10 ML VIAL IV ONE (01:45)
[2023-10-07 03:30] VITALS: BP 149/78
[2023-10-07 03:47] VITALS: O2SAT 98
[2023-10-07] MEDS ORDERED: METH-1165 PO (04:04)
[2023-10-07] MEDS ORDERED: PRED20TA PO (04:04)
[2023-10-07 04:30] VITALS: O2SAT 98
== END 2023-10-07 04:35 | disposition home or self-care (01) ==
LOC: EDBD 23:18 → M ED 23:18
DX: M54.50 Low back pain, unspecified (principal); I10 Essential (primary) hypertension; E78.5 Hyperlipidemia, unspecified; Z79.811 Long term (current) use of aromatase inhibitors; Z79.52 Long term (current) use of systemic steroids; Z79.899 Other long term (current) drug therapy; Z79.82 Long term (current) use of aspirin
CPT/HCPCS: 72131; 96374; 99284; J2800; J2919

== ENCOUNTER 2023-10-26 14:22 | Emergency (ER) | payer MEDICARE, BC ==
[~2023-10-26 14:22] MED LIST changes: +METH-1165 PO; +PRED20TA PO
[2023-10-26 14:39] VITALS: TEMP 98.4
[2023-10-26] MEDS ORDERED: ISOVUE-370 76% 100ML VIAL As Ordered ONE (14:53)
[2023-10-26 15:23] LABS: BASO % 0.2 % (0.0-1.0); EOS % 0.2 % (0.0-3.0); HEMATOCRIT 25.3 % (42.0-52.0); HEMOGLOBIN 8.5 g/dl (13.5-17.5); LYMPH # 1.1 10^3/uL (1.5-5.0); LYMPH % 9.1 % (24.0-44.0); MEAN CORPUSCULAR HEMOGLOBIN 32.7 pg (27.0-33.0); MEAN CORPUSCULAR HGB CONC 33.6 g/dl (32.0-36.5); MEAN CORPUSCULAR VOLUME 97.3 fl (80.0-96.0); MONO # 0.7 10^3/uL (0.0-0.8); MONO % 5.8 % (2.0-8.0); NEUTROPHILS # 10.4 10^3/uL (1.5-8.5); PLATELET COUNT, AUTOMATED 340 10^3/uL (150-450); WHITE BLOOD COUNT 12.3 10^3/uL (4.0-10.0)
[2023-10-26 16:52] LABS: INR 1.3; PARTIAL THROMBOPLASTIN TIME 31.2 SECONDS (24.8-34.2); PROTHROMBIN TIME 15.7 SECONDS (12.5-14.5)
[2023-10-26] MEDS: NS 1,000 ML IV SCH (17:36)
[2023-10-26 21:30] VITALS: BP 139/73; O2SAT 98
== END 2023-10-26 20:34 | disposition short-term general hospital (02) ==
LOC: M ED 14:22
DX: F80.1 Expressive language disorder (principal); I10 Essential (primary) hypertension; E78.5 Hyperlipidemia, unspecified; F10.10 Alcohol abuse, uncomplicated; Z79.01 Long term (current) use of anticoagulants; Z79.82 Long term (current) use of aspirin; Z79.02 Long term (current) use of antithrombotics/antiplatelets; Z79.52 Long term (current) use of systemic steroids; Z79.811 Long term (current) use of aromatase inhibitors; Z79.899 Other long term (current) drug therapy; Z85.118 Personal history of other malignant neoplasm of bronchus and lung
CPT/HCPCS: 70450; 70496; 70498; 71045; 80047; 85025; 85610; 85730; 87040; 93005; 93041; 94760; 96360; 96361; 99285; Q9967

== ENCOUNTER 2023-11-14 09:51 | Inpatient (IN) | payer MEDICARE, BC ==
[~2023-11-14] VITALS: Ht 182.9 cm; Wt 57.5 kg
[~2023-11-14 09:51] MED LIST changes: +CYAN-11 PO; +DEXA4TA PO; +ELIQ5TAB PO; +METO10TA2 PO; +ONDA-84 PO; +TIZA2CAP
[2023-11-14] MEDS ORDERED: SENN-186 PO (11:15)
[2023-11-14] MEDS ORDERED: ALEN70TA82 PO (11:15)
[2023-11-14] MEDS ORDERED: ASPI81CH33 PO (11:15)
[2023-11-14] MEDS ORDERED: B-12100021 PO (11:15)
[2023-11-14] MEDS ORDERED: FOLI1TAB11 PO (11:15)
[2023-11-14] MEDS ORDERED: ACET1TAB55 PO (11:15)
[2023-11-14] MEDS ORDERED: HOME MED LIST COMPLETE! XX SCH (11:20)
[2023-11-14 12:16] LABS: HEMATOCRIT 28.1 % (42.0-52.0); HEMOGLOBIN 8.3 g/dl (13.5-17.5); MEAN CORPUSCULAR HEMOGLOBIN 30.6 pg (27.0-33.0); MEAN CORPUSCULAR HGB CONC 29.5 g/dl (32.0-36.5); MEAN CORPUSCULAR VOLUME 103.7 fl (80.0-96.0); PLATELET COUNT, AUTOMATED 194 10^3/uL (150-450); RED BLOOD COUNT 2.71 10^6/uL (4.30-6.10); WHITE BLOOD COUNT 10.7 10^3/uL (4.0-10.0)
[2023-11-14 12:18] LABS: BLOOD UREA NITROGEN 25 MG/DL (9-23); CALCIUM LEVEL 8.6 MG/DL (8.3-10.6); CARBON DIOXIDE LEVEL 23 MMOL/L (20-31); CHLORIDE LEVEL 111 MMOL/L (98-107); CREATININE FOR GFR 0.73 MG/DL (0.70-1.30); GLOMERULAR FILTRATION RATE > 60.0 (>42); GLUCOSE, FASTING 99 MG/DL (74-106); POTASSIUM SERUM 4.2 MMOL/L (3.5-5.1); SODIUM LEVEL 138 MMOL/L (136-145)
[2023-11-14 14:20] VITALS: BP 162/83; TEMP 97.6; O2SAT 100
[2023-11-14 16:00] VITALS: BP 158/83; TEMP 97; O2SAT 96
[2023-11-14] MEDS: CLOPIDOGREL 75 MG TAB PO SCH (17:24)
[2023-11-14] MEDS: NS 1,000 ML IV ONE (17:24)
[2023-11-14] MEDS ORDERED: PROHANCE 279.3MG/ML 15ML VIAL As Ordered ONE (18:38)
[2023-11-14] MEDS: ENOXAPARIN 60MG/0.6ML SYRINGE (J1650 PER 10MG) SC SCH (20:16)
[2023-11-14] MEDS: ATORVASTATIN 20 MG TAB PO SCH (20:16)
[2023-11-14] MEDS: SENNA 8.6 MG TAB (SENOKOT) PO SCH (20:17)
[2023-11-14] MEDS: ACETAMINOPHEN 325 MG TAB PO SCH (20:17)
[2023-11-14 20:26] VITALS: BP 158/82; TEMP 97.7; O2SAT 100
[2023-11-15] VITALS: BP 166/97; TEMP 97.4; O2SAT 99
[2023-11-15 04:00] VITALS: BP 161/91; TEMP 97.9; O2SAT 99
[2023-11-15 07:54] VITALS: BP 162/82; TEMP 97.7; O2SAT 99
[2023-11-15] MEDS ORDERED: CARVedilol 12.5 MG TAB PO ONE (08:15)
[2023-11-15] MEDS: ASPIRIN 81MG CHEW TABLET PO SCH (09:07)
[2023-11-15] MEDS: CYANOCOBALAMIN 500 MCG TAB PO SCH (09:08)
[2023-11-15] MEDS: FOLIC ACID 1MG TAB PO SCH (09:08)
[2023-11-15] MEDS: OMEPRAZOLE 20MG CAP PO SCH (09:09)
[2023-11-15] MEDS ORDERED: SCOPOLAMINE 1MG TRANSDERMAL PATCH TOP PRN (10:20)
[2023-11-15] MEDS ORDERED: LORazepam 2 MG/ML 1ML VIAL IV PRN (10:20)
[2023-11-15] MEDS ORDERED: ONDANSETRON 4MG 2ML VIAL IV PRN (10:20)
[2023-11-15] MEDS ORDERED: ATROPINE SULFATE 1% OPHTH SOLN 2ML BTL SL PRN (10:20)
[2023-11-15] MEDS ORDERED: FLEET ENEMA PR PRN (10:20)
[2023-11-15] MEDS ORDERED: HYOSCYAMINE SULFATE 0.125 MG SUBL TABLET PO PRN (10:20)
[2023-11-15] MEDS ORDERED: ACETAMINOPHEN 650MG SUPP PR PRN (10:20)
[2023-11-15] MEDS ORDERED: SENNA 8.6 MG TAB (SENOKOT) PO PRN (11:00)
[2023-11-15] MEDS ORDERED: LORazepam 0.5 MG TAB PO PRN (11:00)
[2023-11-15] MEDS ORDERED: LORazepam 1 MG TAB PO PRN (11:00)
[2023-11-15] MEDS ORDERED: SALIVA SUBSTITUTE(MOUTHKOTE) BTL MT PRN (11:25)
[2023-11-15] MEDS ORDERED: ARTIFICIAL TEARS DROPS 15ML BTL (VISINE DRY RELIEF) OU PRN (11:25)
[2023-11-15] MEDS: MORPHINE 10MG/0.5ML ORAL CONCENTRATE SOLUTION U/D SL SCH (13:39)
[2023-11-15] MEDS: LORazepam 0.5 MG TAB PO SCH (16:44)
[2023-11-16] MEDS: MORPHINE 10MG/0.5ML ORAL CONCENTRATE SOLUTION U/D SL PRN (11:08)
[2023-11-16] MEDS: BISACODYL 10MG SUPP PR PRN (11:09)
[2023-11-20] MEDS: SCOPOLAMINE 1MG TRANSDERMAL PATCH TOP SCH (16:24)
[2023-11-20] MEDS: LORazepam 2 MG/ML 1ML VIAL IV PRN (16:24)
[2023-11-21] MEDS: MORPHINE 10MG/0.5ML ORAL CONCENTRATE SOLUTION U/D SL PRN (07:47)
[2023-11-22] MEDS: ATROPINE SULFATE 1% OPHTH SOLN 2ML BTL SL PRN (11:25)
[2023-11-22] MEDS: LORazepam 1 MG TAB SL PRN (11:36)
[2023-11-22] MEDS: HYOSCYAMINE SULFATE 0.125 MG SUBL TABLET SL PRN (11:36)
[2023-11-22] MEDS ORDERED: MORPHINE 10MG/0.5ML ORAL CONCENTRATE SOLUTION U/D SL PRN (12:10)
[2023-11-22] MEDS: MORPHINE 10MG/0.5ML ORAL CONCENTRATE SOLUTION U/D SL SCH (13:38)
[2023-11-22] MEDS: LORazepam 1 MG TAB SL SCH (16:00)
== END 2023-11-22 16:00 | disposition expired | DRG 64 ==
LOC: M ED 09:51 → EDBD 09:51 → M ED INP 12:39 → M PCU 14:41 → M MSPAV 11-21 10:22
PROVIDERS: ADMIT General Practice; ATTEND Student in an Organized Health Care Education/Training Program
DX: I63.9 Cerebral infarction, unspecified (principal); G93.6 Cerebral edema; G93.41 Metabolic encephalopathy; E43 Unspecified severe protein-calorie malnutrition; J96.01 Acute respiratory failure with hypoxia; C79.31 Secondary malignant neoplasm of brain; C79.51 Secondary malignant neoplasm of bone; C34.90 Malignant neoplasm of unspecified part of unspecified bronchus or lung; C78.7 Secondary malignant neoplasm of liver and intrahepatic bile duct; G81.94 Hemiplegia, unspecified affecting left nondominant side; Z68.1 Body mass index [BMI] 19.9 or less, adult; R47.01 Aphasia; I10 Essential (primary) hypertension; I73.9 Peripheral vascular disease, unspecified; D53.9 Nutritional anemia, unspecified; E78.5 Hyperlipidemia, unspecified; Z51.5 Encounter for palliative care; Z79.82 Long term (current) use of aspirin; Z66 Do not resuscitate; Z87.891 Personal history of nicotine dependence; M81.0 Age-related osteoporosis without current pathological fracture; Z79.899 Other long term (current) drug therapy